=== PATIENT | male | born 1970 | race Two or more races ===

== ENCOUNTER 2016-12-28 05:21 | Inpatient (IN) | payer MEDICARE, MEDICAID ==
[~2016-12-28] VITALS: Ht 170.2 cm; Wt 74.8 kg
[2016-12-28] VITALS (9 sets, daily range): BP systolic 113–239; BP diastolic 60–101
[~2016-12-28 05:21] MED LIST: CLONIDINE0.1 MG ORAL; COREG6.25 MG ORAL; DIOVAN160 MG ORAL; HUMALOG100 UNIT/4 SUBQ; HYDRALAZINE HCL25 M1 ORAL; INSULIN; LANTUS SOL100 UNIT/1 SUBQ; METOPROLOL SUCC25 MG ORAL; NORVASC10 MG ORAL; PROTONIX40 MG ORAL
--- NOTE | 2016-12-28 05:51 | Emergency Room Report ---
History of Present Illness General Chief Complaint: Nausea, Vomiting, and Diarrhea Source: Patient (ALEX BLACK M.D.) Present Illness HPI A 46-year-old male with a history of hypertension and renal failure on hemodialysis Wednesday, Wednesday, and Wednesday. He scheduled for dialysis at 9 AM today. He presents with 2 day history of abdominal pain with nausea vomiting and diarrhea. Vomiting is nonbloody nonbilious. Reassurance is watery. Pain is 8/10. Sharp and crampy. Denies any fever or chills. Denies any chest pain. Denies any history of alcohol or drugs. (ALEX BLACK M.D.) Allergies: Coded Allergies: No Known Allergies (Unverified , 09/26/14) Patient History Past Medical History: see triage record, old chart reviewed, HTN, renal disease , dialysis Past Surgical History: other Pertinent Family History: none Social History: Denies: smoking Immunizations: other Reviewed Nursing Documentation: PMH: Agreed, PSxH: Agreed (ALEX BLACK M.D.) Nursing Documentation-PMH Hx Cardiac Problems: Yes - ESRD Hx Hypertension: Yes Hx Diabetes: Yes Hx Cancer: No Hx Gastrointestinal Problems: No Hx Dialysis: Yes - M,W,F Hx Neurological Problems: No Hx Dizziness: Yes Hx Headaches: Yes (ALEX BLACK M.D.) Review of Systems Eye: Denies: blurred vision, eye pain ENT: Denies: ear pain, nose congestion, throat swelling Respiratory: Denies: cough, shortness of breath Cardiovascular: Denies: chest pain, palpitations Gastrointestinal: Reports: abdominal pain, diarrhea, nausea, vomiting Musculoskeletal: Denies: back pain, joint pain Skin: Denies: rash Neurological: Denies: headache, numbness Endocrine: Denies: increased thirst, increased urine Hematologic/Lymphatic: Denies: easy bruising All Other Systems: negative except mentioned in HPI (ALEX BLACK M.D.) Physical Exam Vital Signs Date Time Temp Pulse Resp B/P Pulse Ox O2 Delivery O2 Flow Rate FiO2 12/28/16 05:27 98.1 71 16 231/102 90 Room Air vitals with hypertension hypoxia Sp02 EP Interpretation: reviewed, abnormal General Appearance: well appearing, no apparent distress, alert Head: normocephalic, atraumatic Eyes: bilateral eye EOMI, bilateral eye PERRL ENT: hearing grossly normal, normal pharynx Neck: full range of motion, supple, no meningismus Respiratory: chest non-tender, rales - at bases Cardiovascular #1: regular rate, rhythm, no murmur Gastrointestinal: no mass, no organomegaly, no bruit, non-distended, tenderness - Mild, diffuse. Hyperactive bowel sounds. Musculoskeletal: back normal, gait/station normal, normal range of motion Neurologic: alert, oriented x3 Psychiatric: mood/affect normal Skin: warm/dry (ALEX BLACK M.D.) Medical Decision Making Diagnostic Impression: Primary Impression: Nausea, vomiting, and diarrhea Additional Impressions: Hypertension Qualified Codes: I10 - Essential (primary) hypertension Fluid overload Qualified Codes: E87.70 - Fluid overload, unspecified ER Course She present with abdominal pain and severe hypertension. He is mildly fluid overloaded. He needs to be in dialysis. his symptoms may be secondary to uremia. Laboratory data and CT scan pending. I will sign this patient out to Dr. Glynn for labs and final disposition. (ALEX BLACK M.D.) ER Course Assumed care from Dr. Black. Please see his note. Patient return from CT. HTN. Hydralazine ordered. C/O pain - morphine repeated. CT with enteritis. Due to several factors (abd pain, pulm edema/hypoxia, HTN) will admit tele here. 8:00 - c/o dyspnea. Sats 100%. Resp rate 15. Nitroglycerine SL and topically ordered. Contact Dr. Acosta for admission. (Andreas Glynn M.D.) EKG Diagnostic Results EKG Time: 06:26 Rate: normal Rhythm: NSR ST Segments: no acute changes (ALEX BLACK M.D.) Rate: normal Rhythm: NSR ST Segments: no acute changes (Andreas Glynn M.D.) Rhythm Strip Diag. Results Rhythm Strip Time: 06:26 EP Interpretation: yes Rate: 73 Rhythm: NSR (ALEX BLACK M.D.) EP Interpretation: yes Rhythm: NSR, no PVC's, no ectopy (Andreas Glynn M.D.) Chest X-Ray Diagnostic Results Chest X-Ray Ordered: Yes # of Views/Limited/Complete: 1 View EP Interpretation: Yes Interpretation: no consolidation, no pneumothorax, other - CM with vasc congestion Indication: Shortness of Breath Impression: Other - CM with chf (ALEX BLACK M.D.) CT/MRI/US Diagnostic Results CT/MRI/US Diagnostic Results : Imaging Test Ordered: abd pelvis Impression Limited by no contrast. Increase in CM with pulmonary bibasilar interstitial infiltrates. Right pleural effusion and some CHF in stable pericardial effusion. Nonspecific dilatation of several small bowel loops. Possible enteritis. Apparently mild increasing upper abdominal retroperitoneal or pancreatic adenopathy nonspecific. Stable bilateral perinephric stranding coronary nephritis, nephropathy. Stable urinary bladder wall thickening hypertrophy versus cystitis. New 3 cm mass with fluid collection left inguinal canal nonspecific. Stable mild diffuse ST edema query anasarca. (Andreas Glynn M.D.) Last Vital Signs Date Time Temp Pulse Resp B/P Pulse Ox O2 Delivery O2 Flow Rate FiO2 12/28/16 05:27 98.1 71 16 231/102 90 Room Air Status: improved (ALEX BLACK M.D.) Disposition: ADMITTED INPATIENT Condition: Serious ALEX BLACK M.D. Dec 28, 2016 05:51 Andreas Glynn M.D. Dec 28, 2016 06:58
[2016-12-28] MEDS ORDERED: Morphine Sulfate 4mg/ml Inj IVP ONE ×2 (06:00→07:30)
[2016-12-28 06:30] LABS: BASOPHILS % (AUTO) 0.9 % (0.0-2.0); EOSINOPHILS % (AUTO) 0.2 % (0.0-3.0); LYMPHOCYTES % (AUTO) 9.6 % (20.0-45.0); MEAN CORPUSCULAR HEMOGLOBIN 34.3 PG (27.0-31.0); MEAN CORPUSCULAR HGB CONC 34.2 G/DL (32.0-36.0); MEAN CORPUSCULAR VOLUME 100 FL (80-99); MEAN PLATELET VOLUME 9.7 FL (6.5-10.1); NEUTROPHILS % (AUTO) 83.4 % (45.0-75.0); PLATELET COUNT 134 K/UL (150-450); RED CELL DISTRIBUTION WIDTH 12.5 % (11.6-14.8); WHITE BLOOD COUNT 8.1 K/UL (4.8-10.8)
[2016-12-28 06:44] LABS: TROPONIN I < 0.30 ng/mL (<=0.30)
[2016-12-28 06:45] LABS: ALBUMIN/GLOBULIN RATIO 1.3 (1.0-2.7); CREATININE 9.6 mg/dL (0.7-1.2); GLOMERULAR FILTRATION RATE 5.9 mL/min (>60); POTASSIUM 5.5 mEQ/L (3.4-4.9); TOTAL PROTEIN 7.4 g/dL (6.6-8.7)
[2016-12-28] MEDS ORDERED: MINOXIDIL2.5 MG PO (07:43)
[2016-12-28] MEDS ORDERED: CARVEDILOL25 MG ORAL (07:43)
[2016-12-28] MEDS ORDERED: GABAPENTIN300 MG ORAL (07:43)
[2016-12-28] MEDS ORDERED: ASPIR 8181 MG ORAL (07:43)
[2016-12-28] MEDS ORDERED: LASIX80 MG ORAL (07:43)
[2016-12-28] MEDS ORDERED: HYDRALAZINE HC100 MG ORAL (07:43)
[2016-12-28] MEDS ORDERED: PLAVIX75 MG ORAL (07:43)
[2016-12-28] MEDS ORDERED: Nitroglycerin Subl 0.4mg tab (Bottle Of 25) SL STA (07:58)
[2016-12-28] MEDS ORDERED: Nitroglycerin 2% oint pkt TOPIC ONE (08:00)
--- NOTE | 2016-12-28 11:05 | Diagnostic Imaging Report ---
Indication: SOB Technique: One view of the chest Comparison: 07/15/2015 Findings: Interim removal of previously demonstrated tunneled dialysis catheter. The heart remains enlarged. There is bilateral interstitial edema diffusely. The pleural spaces are grossly clear. Impression: Cardiomegaly Findings compatible with congestive heart failure
--- NOTE | 2016-12-28 11:37 | History & Physical ---
History and Physical History & Physicial Dictated for Int Med-Dr Acosta no. [id number]. EDWINA ONEILL Dec 28, 2016 11:37
[2016-12-28] MEDS ORDERED: LORazepam 1mg tab ORAL PRN (12:30)
[2016-12-28] MEDS ORDERED: cloNIDine 0.2mg Tab ORAL PRN (12:30)
--- NOTE | 2016-12-28 13:11 | Consultation ---
History of Present Illness General Date patient seen: Dec 28, 2016 Chief Complaint: Nausea, Vomiting, and Diarrhea Reason for Consultation: pulmonary edema Present Illness HPI 46-year-old male with a history of hypertension and ESRF on hemodialysis presented with 2 day history of abdominal pain with nausea vomiting and diarrhea. Vomiting is nonbloody nonbilious. Diarrhea is watery. Pain is 8/10. Sharp and crampy. Denies any fever or chills. Denies any chest pain. Denies any history of alcohol or drugs. His initial CXR showed that he has pulmonary edema, his labs revealed hyperkalemia. He is admitted to telemetry for further work up. Allergies: Coded Allergies: No Known Allergies (Unverified , 09/26/14) Medication History Scheduled Amlodipine Besylate (Norvasc), 10 MG ORAL DAILY Aspirin* (Aspir 81*), 81 MG ORAL DAILY, (Reported) Carvedilol (Coreg), 6.25 MG ORAL EVERY 12 HOURS Carvedilol* (Carvedilol*), 25 MG ORAL BID, (Reported) Clopidogrel Bisulfate* (Plavix*), 75 MG ORAL DAILY, (Reported) Furosemide* (Lasix*), 80 MG ORAL TWICE A DAY, (Reported) Gabapentin* (Gabapentin*), 300 MG ORAL EVERY 8 HOURS, (Reported) Hydralazine Hcl* (Hydralazine Hcl*), 100 MG ORAL THREE TIMES A DAY, (Reported) Insulin Glargine (Lantus), Unknown Dose SUBQ BEDTIME, (Reported) Minoxidil* (Loniten*), 2.5 MG PO BID, (Reported) Pantoprazole* (Protonix*), 40 MG ORAL DAILY Scheduled PRN Clonidine HCl (Clonidine HCl), 0.2 MG ORAL Q4H PRN for SBP> 160 Miscellaneous Medications Insulin Lispro (Humalog), 0 SUBQ, (Reported) Patient History Healthcare decision maker Resuscitation status Advanced Directive on File Past Medical/Surgical History Past Medical/Surgical History: (1) Congestive heart failure (CHF) (2) Hypertension (3) ESRD (end stage renal disease) on dialysis Review of Systems All Other Systems: negative except mentioned in HPI Physical Exam General Appearance: WD/WN, no apparent distress, mild distress Lines, tubes and drains: peripheral, dialysis access HEENT: normocephalic, atraumatic Neck: non-tender, normal alignment Respiratory/Chest: rhonchi - left, rhonchi - right Cardiovascular/Chest: normal peripheral pulses, normal rate Abdomen: normal bowel sounds, non tender Genitourinary/Rectal: normal genital exam, normal rectal exam Extremities: normal range of motion, non-tender Skin Exam: normal pigmentation, warm/dry Last 24 Hour Vital Signs Date Time Temp Pulse Resp B/P Pulse Ox O2 Delivery O2 Flow Rate FiO2 12/28/16 09:59 96.3 65 18 177/91 100 Simple Mask 10.0 12/28/16 09:40 182/81 12/28/16 09:30 Simple Mask 12/28/16 08:54 186/73 12/28/16 08:09 220/75 12/28/16 08:09 220/75 12/28/16 07:52 98.3 69 16 220/75 99 Simple Mask 10.0 12/28/16 07:51 98.3 12/28/16 07:31 238/101 12/28/16 07:14 98.3 71 16 238/101 100 Simple Mask 10.0 12/28/16 06:37 242/83 12/28/16 05:45 98.3 70 19 239/92 100 Room Air 12/28/16 05:27 98.1 71 16 231/102 90 Room Air Intake and Output 12/27/16 12/28/16 19:00 07:00 Intake Total 0 ml Balance 0 ml Intake Oral 0 ml Laboratory Tests Test 12/28/16 06:00 White Blood Count 8.1 K/UL (4.8-10.8) Red Blood Count 2.90 M/UL (4.70-6.10) L Hemoglobin 10.0 G/DL (14.2-18.0) L Hematocrit 29.1 % (42.0-52.0) L Mean Corpuscular Volume 100 FL (80-99) H Mean Corpuscular Hemoglobin 34.3 PG (27.0-31.0) H Mean Corpuscular Hemoglobin Concent 34.2 G/DL (32.0-36.0) Red Cell Distribution Width 12.5 % (11.6-14.8) Platelet Count 134 K/UL (150-450) L Mean Platelet Volume 9.7 FL (6.5-10.1) Neutrophils (%) (Auto) 83.4 % (45.0-75.0) H Lymphocytes (%) (Auto) 9.6 % (20.0-45.0) L Monocytes (%) (Auto) 6.0 % (1.0-10.0) Eosinophils (%) (Auto) 0.2 % (0.0-3.0) Basophils (%) (Auto) 0.9 % (0.0-2.0) Sodium Level 136 mEQ/L (135-145) Potassium Level 5.5 mEQ/L (3.4-4.9) H Chloride Level 86 mEQ/L (98-107) L Carbon Dioxide Level 27 mEQ/L (20-30) Anion Gap 23 (5-15) H Blood Urea Nitrogen 69 mg/dL (7-23) H Creatinine 9.6 mg/dL (0.7-1.2) H Estimat Glomerular Filtration Rate 5.9 mL/min (>60) Glucose Level 341 mg/dL (74-106) H Hemoglobin A1c Pending Calcium Level 10.0 mg/dL (8.6-10.2) Total Bilirubin 0.6 mg/dL (0.0-1.2) Aspartate Amino Transf (AST/SGOT) 15 U/L (5-40) Alanine Aminotransferase (ALT/SGPT) 11 U/L (3-41) Alkaline Phosphatase 107 U/L (40-129) Troponin I < 0.30 ng/mL (<=0.30) Total Protein 7.4 g/dL (6.6-8.7) Albumin 4.3 g/dL (3.5-5.2) Globulin 3.1 g/dL Albumin/Globulin Ratio 1.3 (1.0-2.7) Lipase 18 U/L (< 60) Height (Feet): 5 Height (Inches): 7.00 Weight (Pounds): 165 Medications Current Medications Medications (Trade) Dose Ordered Sig/Fish Route PRN Reason Start Time Stop Time Status Last Admin Dose Admin Acetaminophen (Tylenol) 650 mg Q4H PRN ORAL Mild Pain (Pain Scale 1-3) 12/28/16 12:30 01/27/17 12:29 UNV Amlodipine Besylate (Norvasc) 10 mg DAILY ORAL 12/28/16 12:30 01/27/17 12:29 UNV Aspirin (Ecotrin) 81 mg DAILY ORAL 12/28/16 12:30 01/27/17 12:29 UNV Carvedilol (Coreg) 25 mg BID ORAL 12/28/16 12:30 01/27/17 12:29 UNV Clonidine HCl (Catapres) 0.2 mg Q4H PRN ORAL SBP> 160 12/28/16 12:30 01/27/17 12:29 UNV Clopidogrel Bisulfate (Plavix) 75 mg DAILY ORAL 12/28/16 12:30 01/27/17 12:29 UNV Dextrose (Dextrose 50%) STAT PRN IV Hypoglycemia 12/28/16 12:30 01/27/17 12:29 UNV Dextrose (Dextrose 50%) STAT PRN IV Hypoglycemia 12/28/16 12:45 01/27/17 12:44 UNV Diphenhydramine HCl (Benadryl) 25 mg Q6H PRN ORAL Itching/Pruritis 12/28/16 12:30 01/27/17 12:29 UNV Furosemide (Lasix) 80 mg TWICE A DAY ORAL 12/28/16 12:30 01/27/17 12:29 UNV Gabapentin (Neurontin) 300 mg EVERY 8 HOURS ORAL 12/28/16 14:00 01/27/17 13:59 UNV Heparin Sodium (Porcine) (Heparin 5000 units/ml) 5,000 units EVERY 12 HOURS SUBQ 12/28/16 12:30 01/27/17 12:29 UNV Hydralazine HCl (Apresoline) 100 mg Q8HR ORAL 12/28/16 14:00 01/27/17 13:59 UNV Insulin Aspart (NovoLOG) BEFORE MEALS AND HS SUBQ 12/28/16 16:30 01/27/17 16:29 UNV Insulin Detemir (Levemir) 8 units BEDTIME SUBQ 12/28/16 21:00 01/27/17 20:59 UNV Lorazepam (Ativan) 1 mg Q4H PRN ORAL For Anxiety 12/28/16 12:30 01/04/17 12:29 UNV Minoxidil (Loniten) 2.5 mg BID ORAL 12/28/16 12:30 01/27/17 12:29 UNV Ondansetron HCl (Zofran) 4 mg EVERY 4 HOURS PRN IM Nausea & Vomiting 12/28/16 09:00 01/27/17 08:59 Ondansetron HCl (Zofran) 4 mg EVERY 4 HOURS PRN IVP Nausea & Vomiting 12/28/16 12:30 01/27/17 12:29 UNV Pantoprazole (Protonix) 40 mg DAILY ORAL 12/28/16 12:30 01/27/17 12:29 UNV Pantoprazole (Protonix) 40 mg DAILY ORAL 12/28/16 12:30 01/27/17 12:29 UNV Assessment/Plan Problem List: (1) Congestive heart failure (CHF) ICD Codes: I50.9 - Heart failure, unspecified SNOMED: 09248045 (2) Hyperkalemia ICD Codes: E87.5 - Hyperkalemia SNOMED: 06001177 (3) ESRD (end stage renal disease) on dialysis ICD Codes: N18.6 - End stage renal disease; Z99.2 - Dependence on renal dialysis SNOMED: 380179426 (4) Nausea & vomiting ICD Codes: R11.2 - Nausea with vomiting, unspecified SNOMED: 87165052 (5) Hypertension ICD Codes: I10 - Essential (primary) hypertension SNOMED: 93230692 Qualifiers: Qualified Codes: I10 - Essential (primary) hypertension Assessment/Plan Respiratory treatment titrate fio2 to sat of 92% HD symptomatic treatment GI evaluation, Dr. Thomas informed cx in am may go to med/surg after HD. IMELDA SANTIZO Dec 28, 2016 13:11
[2016-12-28] MEDS: Heparin 5000 units/ml inj SUBQ SCH ×2 (14:00→20:51)
[2016-12-28] MEDS ORDERED: Aspirin EC 81mg tab ORAL SCH (14:00)
[2016-12-28] MEDS: Minoxidil 2.5mg tab ORAL SCH ×2 (14:39→20:52)
[2016-12-28] MEDS: Furosemide 80mg tab ORAL SCH ×2 (14:39→17:09)
[2016-12-28] MEDS: HydrALAZINE 50mg tab ORAL SCH ×2 (14:40→21:38)
[2016-12-28] MEDS: Carvedilol 25mg Tab ORAL SCH ×2 (14:40→20:52)
--- NOTE | 2016-12-28 15:51 | GI Initial Consult Note ---
History of Present Illness General Date patient seen: Dec 28, 2016 Time patient seen: 15:50 Reason for Hospitalization: Nausea, Vomiting, and Diarrhea Referring physician: RADHA BOATENG Reason for Consultation: N/V/D Present Illness HPI A 46-year-old male with a history of hypertension and renal failure on hemodialysis Wednesday, Wednesday, and Wednesday. He scheduled for dialysis at 9 AM today. He presents with 2 day history of abdominal pain with nausea vomiting and diarrhea. Vomiting is nonbloody nonbilious. Reassurance is watery. Pain is 8/10. Sharp and crampy. Denies any fever or chills. Denies any chest pain. Denies any history of alcohol or drugs. GI Consult. HPI as noted above. GI consulted for N/V/D and c/o of abdominal pain x 2 days. Pt seen on floor, awake A&Ox4 NAD with no active s/sx of N/V/D. He stated last episode of emesis was this morning, denies any hematemesis or coffee grounds. Denies smoking and drinking. CT performed in ED shows enteritis. The patient presents today hx of DM with non compliancy and anemia. Lipase unremarkable. No history of endoscopic procedures. Home Meds Active Scripts Carvedilol (Coreg) 6.25 Mg Tab, 6.25 MG ORAL EVERY 12 HOURS, #1 TAB Prov:Fern Yang KNOCK OUT [employer] 07/17/15 Pantoprazole* (PROTONIX*) 40 Mg Tablet.dr, 40 MG ORAL DAILY, #1 TAB Prov:Fern Yang [employer] 07/17/15 Clonidine HCl (Clonidine HCl) 0.1 Mg Tab, 0.2 MG ORAL Q4H Y for SBP> 160, #1 TAB Prov:Fern Yang [employer] 07/17/15 Amlodipine Besylate (Norvasc) 10 Mg Tab, 10 MG ORAL DAILY, #1 TAB Prov:Fern Yang [employer]NOCK [employer] 07/17/15 Reported Medications Gabapentin* (GABAPENTIN*) 300 Mg Capsule, 300 MG ORAL EVERY 8 HOURS, CAP 0 Refills 12/28/16 Hydralazine Hcl* (HYDRALAZINE HCL*) 100 Mg Tablet, 100 MG ORAL THREE TIMES A DAY , TAB 12/28/16 Minoxidil* (LONITEN*) 2.5 Mg Tablet, 2.5 MG PO BID, TAB 12/28/16 Aspirin* (ASPIR 81*) 81 Mg Tablet.dr, 81 MG ORAL DAILY, TAB 12/28/16 Clopidogrel Bisulfate* (PLAVIX*) 75 Mg Tablet, 75 MG ORAL DAILY, TAB 12/28/16 Carvedilol* (CARVEDILOL*) 25 Mg Tablet, 25 MG ORAL BID, TAB 12/28/16 Furosemide* (LASIX*) 80 Mg Tablet, 80 MG ORAL TWICE A DAY, TAB 12/28/16 Insulin Lispro (HUMALOG) 100 Unit/1 Ml Cartridge, 0 SUBQ, #1 UNITS 0 Refills 07/16/15 Insulin Glargine (LANTUS) 100 Unit/1 Ml Insuln.pen, SUBQ BEDTIME, #1 EA 0 Refills 07/16/15 Med list reviewed/reconciled: Yes Allergies: Coded Allergies: No Known Allergies (Unverified , 09/26/14) Patient History PMH Narrative Past Medical History: see triage record, old chart reviewed, HTN, renal disease , dialysis Past Surgical History: other Pertinent Family History: none Social History: Denies: smoking Immunizations: other Nursing Documentation-PMH Hx Cardiac Problems: Yes - ESRD Hx Hypertension: Yes Hx Diabetes: Yes Hx Cancer: No Hx Gastrointestinal Problems: No Hx Dialysis: Yes - M,W,F Hx Neurological Problems: No Hx Dizziness: Yes Hx Headaches: Yes Review of Systems All Other Systems: negative except mentioned in HPI Physical Exam Vital Signs Date Time Temp Pulse Resp B/P Pulse Ox O2 Delivery O2 Flow Rate FiO2 12/28/16 05:27 98.1 71 16 231/102 90 Room Air 12/28/16 07:14 10.0 Sp02 EP Interpretation: reviewed Labs Laboratory Tests Test 12/28/16 06:00 White Blood Count 8.1 K/UL (4.8-10.8) Red Blood Count 2.90 M/UL (4.70-6.10) L Hemoglobin 10.0 G/DL (14.2-18.0) L Hematocrit 29.1 % (42.0-52.0) L Mean Corpuscular Volume 100 FL (80-99) H Mean Corpuscular Hemoglobin 34.3 PG (27.0-31.0) H Mean Corpuscular Hemoglobin Concent 34.2 G/DL (32.0-36.0) Red Cell Distribution Width 12.5 % (11.6-14.8) Platelet Count 134 K/UL (150-450) L Mean Platelet Volume 9.7 FL (6.5-10.1) Neutrophils (%) (Auto) 83.4 % (45.0-75.0) H Lymphocytes (%) (Auto) 9.6 % (20.0-45.0) L Monocytes (%) (Auto) 6.0 % (1.0-10.0) Eosinophils (%) (Auto) 0.2 % (0.0-3.0) Basophils (%) (Auto) 0.9 % (0.0-2.0) Sodium Level 136 mEQ/L (135-145) Potassium Level 5.5 mEQ/L (3.4-4.9) H Chloride Level 86 mEQ/L (98-107) L Carbon Dioxide Level 27 mEQ/L (20-30) Anion Gap 23 (5-15) H Blood Urea Nitrogen 69 mg/dL (7-23) H Creatinine 9.6 mg/dL (0.7-1.2) H Estimat Glomerular Filtration Rate 5.9 mL/min (>60) Glucose Level 341 mg/dL (74-106) H Hemoglobin A1c 6.9 % (< 6.0) H Calcium Level 10.0 mg/dL (8.6-10.2) Total Bilirubin 0.6 mg/dL (0.0-1.2) Aspartate Amino Transf (AST/SGOT) 15 U/L (5-40) Alanine Aminotransferase (ALT/SGPT) 11 U/L (3-41) Alkaline Phosphatase 107 U/L (40-129) Troponin I < 0.30 ng/mL (<=0.30) Total Protein 7.4 g/dL (6.6-8.7) Albumin 4.3 g/dL (3.5-5.2) Globulin 3.1 g/dL Albumin/Globulin Ratio 1.3 (1.0-2.7) Lipase 18 U/L (< 60) General Appearance: well appearing, no apparent distress, alert Head: normocephalic EENT: normal ENT inspection Neck: full range of motion, supple Respiratory: normal breath sounds, no respiratory distress Cardiovascular: normal rate Gastrointestinal: normal inspection, non tender, soft Neurologic: normal inspection, alert, oriented x3, responsive Psychiatric: normal inspection, judgement/insight normal, memory normal Skin: normal color, no rash, warm/dry Current Medications Current Medications Medications (Trade) Dose Ordered Sig/Fish Route PRN Reason Start Time Stop Time Status Last Admin Dose Admin Acetaminophen (Tylenol) 650 mg Q4H PRN ORAL Mild Pain (Pain Scale 1-3) 12/28/16 12:30 01/27/17 12:29 Amlodipine Besylate (Norvasc) 10 mg DAILY ORAL 12/28/16 14:00 01/27/17 13:59 12/28/16 14:40 Aspirin (Ecotrin) 81 mg DAILY ORAL 12/28/16 14:00 01/27/17 13:59 12/28/16 14:38 Carvedilol (Coreg) 25 mg Q12HR ORAL 12/28/16 14:00 01/27/17 13:59 12/28/16 14:40 Clonidine HCl (Catapres) 0.2 mg Q4H PRN ORAL SBP> 160 12/28/16 12:30 01/27/17 12:29 Clopidogrel Bisulfate (Plavix) 75 mg DAILY ORAL 12/28/16 14:00 01/27/17 13:59 12/28/16 14:40 Dextrose (Dextrose 50%) STAT PRN IV Hypoglycemia 12/28/16 12:45 01/27/17 12:44 Diphenhydramine HCl (Benadryl) 25 mg Q6H PRN ORAL Itching/Pruritis 12/28/16 12:30 01/27/17 12:29 Furosemide (Lasix) 80 mg TWICE A DAY ORAL 12/28/16 14:00 01/27/17 13:59 12/28/16 14:39 Gabapentin (Neurontin) 300 mg EVERY 8 HOURS ORAL 12/28/16 14:00 01/27/17 13:59 12/28/16 14:41 Heparin Sodium (Porcine) (Heparin 5000 units/ml) 5,000 units EVERY 12 HOURS SUBQ 12/28/16 14:00 01/27/17 13:59 Hydralazine HCl (Apresoline) 100 mg Q8HR ORAL 12/28/16 14:00 01/27/17 13:59 12/28/16 14:40 Insulin Aspart (NovoLOG) BEFORE MEALS AND HS SUBQ 12/28/16 16:30 01/27/17 16:29 Insulin Detemir (Levemir) 8 units BEDTIME SUBQ 12/28/16 21:00 01/27/17 20:59 Lorazepam (Ativan) 1 mg Q4H PRN ORAL For Anxiety 12/28/16 12:30 01/04/17 12:29 Minoxidil (Loniten) 2.5 mg Q12HR ORAL 12/28/16 14:00 01/27/17 13:59 12/28/16 14:39 Ondansetron HCl (Zofran) 4 mg EVERY 4 HOURS PRN IVP Nausea & Vomiting 12/28/16 12:30 01/27/17 12:29 Pantoprazole (Protonix) 40 mg DAILY ORAL 12/28/16 12:30 01/27/17 12:29 12/28/16 14:50 GI: Plan Problems: (1) Nausea & vomiting (2) Congestive heart failure (CHF) (3) Nausea, vomiting, and diarrhea (4) Anemia (5) DM gastroparesis Plan CT enteritis lipase WNL symptomatic treatment anemia work up OB stool to r/o GI bleed zofran prn, consider low dose erythromycin if patient has persistent vomiting FLD, adv as tolerated ppi cont lasix DM mgmt pt is on Plavix (this medication must be stopped min 48 hours prior any endoscopic procedure.) fu labs Discussed with Dr. Nunez. Thank you for referring this patient, we will follow. Citlali Singh N.P. Dec 28, 2016 15:51
--- NOTE | 2016-12-28 16:10 | Diagnostic Imaging Report ---
Indication: Abnormal Technique: Spiral acquisitions obtained through the abdomen and pelvis. No oral contrast utilized, per emergency room physician request No IV contrast utilized, per referring physician request.. Multiplanar reconstructions were generated. Total dose length product 682 mGycm. CTDIvol(s) 13 mGy. Dose reduction achieved using automated exposure control Comparison: 07/16/2015 contrast study Findings: The heart is enlarged. There is a small right-sided pleural effusion and trace left pleural effusion. There is patchy groundglass opacity at the right lung base. The bones demonstrate mild degenerative proliferative changes of the lumbar spine. There is considerable atherosclerotic vascular calcification. There is generalized mild edema of the subcutaneous abdominal fat. These findings are new or progressive since the previous study. There is an inferior pericardial effusion which was evident previously. The appendix is normal. No evidence of diverticulosis or diverticulitis. No small bowel distention. No free or loculated intraperitoneal air or fluid. There is a umbilical hernia into which protrudes the edge of the transverse colon. Distal esophagus, stomach, duodenum are unremarkable. There an ovoid soft tissue attenuation structure within the right inguinal canal which measures 5 cm long axis dimension and 2.8 cm short axis dimension. This was not evident previously Lack of IV contrast limits assessment of the solid organs. The liver, gallbladder, bile ducts, pancreas, spleen, adrenals are unremarkable. No renal parenchymal abnormality, renal or ureteral calculus, hydronephrosis, or hydroureter. There is perinephric fat stranding bilaterally. Prominent retroperitoneal and peripancreatic nodes are slightly more prominent than previously. No pelvic mass or adenopathy. The bladder is apparently somewhat thickwalled, also evident previously. Impression: Progressive cardiomegaly. Progressive generalized soft tissue edema, as described Patchy groundglass opacities at the right lung base, small right trace left pleural effusion, likely reflecting congestive heart failure Pericardial effusion, evident previously New ovoid soft tissue attenuation structure within the right inguinal canal, measuring 5 cm long. Further evaluation with ultrasound recommended to better characterize. Prominent and somewhat increased peripancreatic and retroperitoneal lymph nodes, nonspecific Bilateral perinephric fat stranding, also evident previously, nonspecific. Thickwalled bladder, could indicate cystitis or chronic bladder outlet obstruction This agrees with the preliminary interpretation provided overnight by Dr. Muir The CT scanner at [facility] is accredited by the [employer] and the scans are performed using protocols designed to limit radiation exposure to as low as reasonably achievable to attain images of sufficient resolution adequate for diagnostic evaluation.
[2016-12-28] MEDS: NovoLOG Insulin Flexpen SUBQ SCH ×2 (17:10→20:51)
--- NOTE | 2016-12-28 18:21 | Cardiac Electrophysiology PN ---
Subjective Subjective [id number] Objective Last 24 Hour Vital Signs Date Time Temp Pulse Resp B/P Pulse Ox O2 Delivery O2 Flow Rate FiO2 12/28/16 16:29 196/82 12/28/16 16:11 99.0 64 18 196/82 97 Nasal Cannula 2.0 12/28/16 14:40 186/81 12/28/16 14:40 69 186/81 12/28/16 14:40 69 186/81 12/28/16 14:39 186/81 12/28/16 14:36 69 18 186/81 100 Simple Mask 10.0 12/28/16 12:15 97.5 63 18 197/87 100 Simple Mask 10.0 12/28/16 12:00 64 12/28/16 09:59 96.3 65 18 177/91 100 Simple Mask 10.0 12/28/16 09:40 182/81 12/28/16 09:30 Simple Mask 12/28/16 08:54 186/73 12/28/16 08:09 220/75 12/28/16 08:09 220/75 12/28/16 07:52 98.3 69 16 220/75 99 Simple Mask 10.0 12/28/16 07:51 98.3 12/28/16 07:31 238/101 12/28/16 07:14 98.3 71 16 238/101 100 Simple Mask 10.0 12/28/16 06:37 242/83 12/28/16 05:45 98.3 70 19 239/92 100 Room Air 12/28/16 05:27 98.1 71 16 231/102 90 Room Air Intake and Output 12/27/16 12/28/16 19:00 07:00 Intake Total 0 ml Balance 0 ml Intake Oral 0 ml Laboratory Tests Test 12/28/16 06:00 White Blood Count 8.1 K/UL (4.8-10.8) Red Blood Count 2.90 M/UL (4.70-6.10) L Hemoglobin 10.0 G/DL (14.2-18.0) L Hematocrit 29.1 % (42.0-52.0) L Mean Corpuscular Volume 100 FL (80-99) H Mean Corpuscular Hemoglobin 34.3 PG (27.0-31.0) H Mean Corpuscular Hemoglobin Concent 34.2 G/DL (32.0-36.0) Red Cell Distribution Width 12.5 % (11.6-14.8) Platelet Count 134 K/UL (150-450) L Mean Platelet Volume 9.7 FL (6.5-10.1) Neutrophils (%) (Auto) 83.4 % (45.0-75.0) H Lymphocytes (%) (Auto) 9.6 % (20.0-45.0) L Monocytes (%) (Auto) 6.0 % (1.0-10.0) Eosinophils (%) (Auto) 0.2 % (0.0-3.0) Basophils (%) (Auto) 0.9 % (0.0-2.0) Sodium Level 136 mEQ/L (135-145) Potassium Level 5.5 mEQ/L (3.4-4.9) H Chloride Level 86 mEQ/L (98-107) L Carbon Dioxide Level 27 mEQ/L (20-30) Anion Gap 23 (5-15) H Blood Urea Nitrogen 69 mg/dL (7-23) H Creatinine 9.6 mg/dL (0.7-1.2) H Estimat Glomerular Filtration Rate 5.9 mL/min (>60) Glucose Level 341 mg/dL (74-106) H Hemoglobin A1c 6.9 % (< 6.0) H Calcium Level 10.0 mg/dL (8.6-10.2) Total Bilirubin 0.6 mg/dL (0.0-1.2) Aspartate Amino Transf (AST/SGOT) 15 U/L (5-40) Alanine Aminotransferase (ALT/SGPT) 11 U/L (3-41) Alkaline Phosphatase 107 U/L (40-129) Troponin I < 0.30 ng/mL (<=0.30) Total Protein 7.4 g/dL (6.6-8.7) Albumin 4.3 g/dL (3.5-5.2) Globulin 3.1 g/dL Albumin/Globulin Ratio 1.3 (1.0-2.7) Lipase 18 U/L (< 60) ANAYA HOOD Dec 28, 2016 18:21
--- NOTE | 2016-12-28 20:01 | History and Physical Report ---
DATE OF ADMISSION: 12/28/2016 CHIEF COMPLAINT: The patient is a 46-year-old male who presents with chief complaint of nausea, vomiting, and diarrhea. HISTORY OF PRESENT ILLNESS: Began on 12/26/2016. The patient began to experience epigastric pain. The patient also complained of nausea and vomiting. The patient also had diarrhea. The patient states he is unable to tolerate liquids or solids. The patient states as soon as he eats or drink something, he vomits and has diarrhea. The patient presented to [facility] emergency room. The patient was admitted for nausea, vomiting, diarrhea, and epigastric pain. PAST MEDICAL HISTORY: Significant for 1. End-stage renal disease, on hemodialysis, every Wednesday, Wednesday, and Wednesday. 2. Diabetes type 2. 3. Hypertension. 4. The patient states his last dialysis was on 12/25/2016. PAST SURGICAL HISTORY: Significant for right arteriovenous graft for dialysis. CURRENT MEDICATIONS: 1. Lantus 80 units subcutaneously at bedtime. 2. Amlodipine 10 mg one tablet p.o. daily. 3. Aspirin 81 mg one tablet p.o. daily. 4. Coreg 6.25 mg one tablet p.o. twice daily. 5. Plavix 75 mg one tablet p.o. daily. 6. Lasix 80 mg one tablet p.o. twice daily. 7. Gabapentin 300 mg one tablet p.o. three times daily. 8. Hydralazine 100 mg one tablet p.o. three times daily. 9. Lispro sliding scale. 10. Minoxidil 2.5 mg one tablet p.o. twice daily. 11. Protonix 40 mg one tablet p.o. daily. ALLERGIES: No known drug allergies. SOCIAL HISTORY: The patient is . The patient is disabled. The patient denies tobacco or alcohol use. REVIEW OF SYSTEMS: Constitutional: The patient denies weight loss or weight gain. The patient denies fevers or chills. HEENT: The patient denies ear or throat pain. The patient denies headache. Cardiovascular: The patient denies palpitations or chest pain. Chest: The patient denies chest pain or palpitations. Abdomen: The patient complains of epigastric pain as above. The patient complains of nausea and vomiting as above. The patient complains of diarrhea as above. The patient denies constipation. Neuromuscular: The patient denies seizures or generalized weakness. Genitourinary: The patient denies dysuria or increased frequency of urination. PHYSICAL EXAMINATION: GENERAL: The patient is well developed and well nourished male, who is currently undergoing dialysis. VITAL SIGNS: Temperature 98.3 degrees, respirations 16, pulse 69, and blood pressure 220/75. HEENT: Eyes, pupils are equal and responsive to light and accommodation. Extraocular movements are intact. NECK: Supple without lymphadenopathy. CHEST: Lungs are clear to auscultation bilaterally without wheezes or rales. CARDIOVASCULAR: Regular rhythm and rate. S1 and S2 are normal without murmurs, rubs, or gallops. ABDOMEN: Soft. Tender to palpation in the epigastric region otherwise without rebound or guarding. EXTREMITIES: There is no clubbing, cyanosis, or edema. RECTAL: Refused. NEUROLOGIC: Cranial nerves II through XII are grossly intact without focal deficits. Motor strength is 5/5 bilaterally. Deep tendon reflexes are 2+ plantar. LABORATORY AND DIAGNOSTIC DATA: WBC 8.1, hemoglobin 10.2, hematocrit 29.1, and platelets 134,000. Sodium 136, potassium 5.5, chloride 86, CO2 27, BUN 69, creatinine 9.6, and glucose 341. Troponin less than 0.3. Chest x-ray was reported as bilateral interstitial edema consistent with congestive heart failure. ASSESSMENT: This is a 46-year-old male. 1. Congestive heart failure. 2. Diarrhea. 3. Nausea and vomiting. 4. Epigastric pain. 5. Diabetes type 2. 6. Hypertension. 7. End-stage renal disease. TREATMENT: 1. Congestive heart failure. Cardiology consultation will be obtained with Dr. Lloyd. We will follow recommendations of Dr. Lloyd. Hydralazine and Coreg will be continued as above. Amlodipine will be continued as above. 2. Diarrhea/nausea/vomiting. A Gastroenterology consultation will be obtained with Dr. Se Sinclair. We will follow recommendations Dr. Sinclair. 3. Gastric pain, this may be secondary to nausea and vomiting as above or cholelithiasis. A CT scan of the abdomen is pending. 4. Diabetes type 2. Continue Lantus as above and NovoLog sliding scale has been . 5. Hypertension. Continue hydralazine, Coreg and Norvasc as above. A Cardiology consultation will be obtained with Dr. Lloyd. 6. End-stage renal disease. A Nephrology consultation will be obtained with Dr. Machado. We will follow recommendations of Nephrology. The patient is currently undergoing hemodialysis. Ernie Lawson M.D. DR: MENDEZ JOB#: [id number] CC:
--- NOTE | 2016-12-28 20:02 | Cardiology Report ---
APPROVED REPORT EKG Measurement Heart [id number] Normal sinus rhythm Normal ECG
[2016-12-28] MEDS ORDERED: Levemir Flexpen SUBQ SCH (21:00)
--- NOTE | 2016-12-28 21:45 | Consultation ---
DATE OF CONSULTATION: 12/28/2016 REFERRING PHYSICIAN: Jimbo Acosta M.D. REASON FOR CONSULTATION: End-stage renal disease, need for dialysis. HISTORY OF PRESENT ILLNESS: The patient is a 46-year-old, male with past medical history significant for history of end-stage renal disease, anemia of chronic kidney disease, renal osteodystrophy, diabetes, uncontrolled hypertension apparently started having cough and yellow sputum for two days. The patient also at the emergency room complaining of abdominal pain, nausea, vomiting. In ER, the patient found to be having a chest x-ray with pulmonary edema. The patient also found to be severely hyperkalemic, the last dialysis on Wednesday. The patient consequently was admitted in the hospital for congestive heart failure exacerbation and hyperkalemia. I was called for management of renal disease and electrolyte imbalance. PAST MEDICAL HISTORY: Includin. Including end-stage renal disease. 2. Anemia of chronic kidney disease. 3. Renal osteodystrophy. 4. Hypertension. 5. Diabetes. 6. History of diabetic neuropathy. 7. Dyslipidemia. PAST SURGICAL HISTORY: History of AV fistula placement. ALLERGIES: NO KNOWN DRUG ALLERGIES. HOME MEDICATIONS: Including 1. Amlodipine 10 mg p.o. daily. 2. Aspirin 81 mg p.o. daily. 3. Carvedilol 25 mg p.o. daily. 4. Lasix 80 mg p.o. daily 5. Hydralazine 100 mg p.o. daily. 6. Insulin glargine 1000 p.o. daily. 7. 2.5 mg p.o. daily. 8. Protonix 40 mg p.o. daily. REVIEW OF SYSTEMS: General: He complained of generalized weakness. Denies any fever, chills, or night sweats. Head and neck: Denies any dysphagia, odynophagia, blurry vision, headache, or neck stiffness. Pulmonary: Complained of shortness of breath, cough, yellow sputum. Complained of orthopnea. Gastrointestinal: Complained of nausea and vomiting. Denies any melena, hematemesis, hematochezia. Genitourinary: Denies any dysuria, frequency, or hematuria. Musculoskeletal: He complained of generalized weakness otherwise negative. PHYSICAL EXAMINATION: VITAL SIGNS: The patient had temperature of 96, blood pressure of 170/91, pulse rate of 61, respiratory rate of 18. HEAD AND NECK: No JVP. No LAD. No thyromegaly. Extraocular movement intact. Pupils reactive to light and accommodation. LUNGS: Bilateral decreased breathing sound on the both side otherwise clear. CARDIAC: Regular rate and rhythm. S1 and S2. No murmur. No rub. ABDOMEN: Soft, nontender, and nondistended. EXTREMITIES: Trace edema. No clubbing. No cyanosis. LABORATORY VALUES: The patient had WBC count of 8.1, hemoglobin of 10, and hematocrit of 29, and platelet count of 134. Chemistry reveals sodium 136, potassium 5.5, chloride 86, bicarb 27, BUN of 69, creatinine of 9.6. Glucose of 343. Hemoglobin A1c of 6.9. AST of 15, ALT of 11. Total protein of 7.4. Albumin of 4.3. Chest x-ray revealed pulmonary congestion. ASSESSMENT: 1. Fluid overload. 2. End-stage renal disease. 3. Anemia of chronic kidney disease. 4. Hyperkalemia. 5. Uncontrolled diabetes. PLAN: 1. Stat dialysis to be done. 2. Start the patient on Epogen for anemia of chronic kidney disease. 3. Check iron panel. 4. Check the calcium, phosphorous, PTH for evaluation of renal osteodystrophy. 5. Monitor the electrolytes closely. At the end, I would like to thank, Dr. Acosta, for allowing me to participate in the care of this patient. Jerilyn Machado M.D. DR: Alissa JOB#: [id number] CC:
[2016-12-29] VITALS (7 sets, daily range): BP systolic 87–135; BP diastolic 40–61
[2016-12-29] MEDS ORDERED: LORazepam 1mg tab ORAL PRN (00:30)
[2016-12-29] MEDS ORDERED: cloNIDine 0.2mg Tab ORAL PRN (00:30)
--- NOTE | 2016-12-29 03:16 | Consultation ---
DATE OF CONSULTATION: 12/28/2016 CARDIOLOGY CONSULTATION: CONSULTING PHYSICIAN: Cricket Gottlieb M.D. REFERRING PHYSICIAN: Jimbo Acosta M.D. REASON FOR CONSULTATION: Accelerated hypertension and congestive heart failure. HISTORY OF PRESENT ILLNESS: The patient is a 46-year-old gentleman with a history of hypertension and end-stage renal disease, on hemodialysis, Wednesday, Wednesday, and Wednesday, who presented with two days of abdominal pain, nausea, vomiting, and diarrhea. The patient did not have any chest pain or shortness of breath. In the emergency room, however, the blood pressure was more than 200. The patient was admitted to telemetry and underwent hemodialysis. Per my evaluation, the patient is . PAST MEDICAL HISTORY: 1. Hypertension. 2. Diabetes. 3. End-stage renal disease, on hemodialysis. MEDICATIONS: Per reconciliation. FAMILY HISTORY: Noncontributory. REVIEW OF SYSTEMS: Review of systems was negative other than what is mentioned in the history of present illness. PHYSICAL EXAMINATION: VITAL SIGNS: Blood pressure is 196/82, pulse 64, and respirations 18. NECK: Shows no JVD. LUNGS: Decreased breath sounds. CARDIOVASCULAR: Shows regular S1 and S2 with no gallop. ABDOMEN: Soft. EXTREMITIES: No pitting edema. LABORATORY DATA: Showed white count of 8, hemoglobin 10, hematocrit 29, and platelet count of 134,000. Sodium is 133, potassium 5.5, BUN 69, creatinine 9.6, and glucose 341. ASSESSMENT/PLAN: 1. Accelerated hypertension. Blood pressure was 230 in the emergency room. Continue Norvasc 10 mg daily, Coreg 25 mg b.i.d., hemodialysis. mg p.o. b.i.d., minoxidil 2.5 mg b.i.d., and hydralazine 100 mg two times daily. The patient is also on p.r.n. clonidine. We will add intravenous hydralazine to his medical regimen. 2. Congestive heart failure, on hemodialysis. We will get an echocardiogram for further evaluation. 3. Diabetes. 4. Abdominal pain, nausea, and vomiting. Further evaluation by gastrointestinal, Dr. Nunez. Thank you very much, Dr. Acosta, for allowing me to participate in the care of this patient. Please do not hesitate to contact me for any questions regarding my evaluation. Cricket Gottlieb M.D. DR: Obi JOB#: [id number] CC:
[2016-12-29] MEDS: HydrALAZINE 50mg tab ORAL SCH ×3 (05:35→22:00)
[2016-12-29] MEDS: NovoLOG Insulin Flexpen SUBQ SCH ×5 (06:23→20:45)
[2016-12-29 06:48] LABS: BASOPHILS % (AUTO) 1.4 % (0.0-2.0); LYMPHOCYTES % (AUTO) 24.6 % (20.0-45.0); MEAN CORPUSCULAR HGB CONC 33.1 G/DL (32.0-36.0); MEAN CORPUSCULAR VOLUME 100 FL (80-99); MEAN PLATELET VOLUME 8.5 FL (6.5-10.1); MONOCYTES % (AUTO) 11.8 % (1.0-10.0); NEUTROPHILS % (AUTO) 60.2 % (45.0-75.0); PLATELET COUNT 147 K/UL (150-450); RED BLOOD COUNT 2.84 M/UL (4.70-6.10); RED CELL DISTRIBUTION WIDTH 12.8 % (11.6-14.8); WHITE BLOOD COUNT 5.8 K/UL (4.8-10.8)
[2016-12-29 08:06] LABS: TROPONIN I < 0.30 ng/mL (<=0.30)
[2016-12-29 08:08] LABS: THYROID STIMULATING HORMONE 1.13 uIU/mL (0.300-4.500)
--- NOTE | 2016-12-29 08:12 | Nephrology Progress Note ---
Assessment/Plan Assessment 1. Fluid overload. 2. End-stage renal disease. 3. Anemia of chronic kidney disease. 4. Hyperkalemia. 5. Uncontrolled diabetes. Plan plan dialysis in am hold all bp meds monitoring electrolyte restart epogen check phos Subjective Constitutional: Reports: no symptoms HEENT: Reports: no symptoms Genitourinary: Reports: no symptoms Neurologic/Psychiatric: Reports: no symptoms Subjective had dialysis yesterday feeling ok continue to be hypotensive Objective Objective Last 24 Hour Vital Signs Date Time Temp Pulse Resp B/P Pulse Ox O2 Delivery O2 Flow Rate FiO2 12/29/16 05:35 101/52 12/29/16 05:33 97.2 55 16 101/52 97 Nasal Cannula 2.0 12/29/16 04:00 96.8 54 16 87/40 97 Nasal Cannula 2.0 12/29/16 00:00 98.1 59 18 90/43 96 Nasal Cannula 2.0 12/28/16 21:38 97/54 12/28/16 20:52 113/60 12/28/16 20:52 60 113/60 12/28/16 20:00 99.0 60 18 113/60 97 Nasal Cannula 2.0 12/28/16 18:28 61 122/62 Nasal Cannula 2.0 12/28/16 16:29 196/82 12/28/16 16:11 99.0 64 18 196/82 97 Nasal Cannula 2.0 12/28/16 14:40 186/81 12/28/16 14:40 69 186/81 12/28/16 14:40 69 186/81 12/28/16 14:39 186/81 12/28/16 14:36 69 18 186/81 100 Simple Mask 10.0 12/28/16 12:15 97.5 63 18 197/87 100 Simple Mask 10.0 12/28/16 12:00 64 12/28/16 09:59 96.3 65 18 177/91 100 Simple Mask 10.0 12/28/16 09:40 182/81 12/28/16 09:30 Simple Mask 12/28/16 08:54 186/73 12/28/16 08:09 220/75 12/28/16 08:09 220/75 Intake and Output 12/28/16 12/29/16 19:00 07:00 Intake Total 240 ml 100 ml Output Total 4400 ml Balance -4160 ml 100 ml Intake Oral 240 ml 100 ml Output Hemodialysis UF 4400 ml # Bowel Movements 1 Laboratory Tests 12/29/16 04:40: White Blood Count 5.8, Red Blood Count 2.84L, Hemoglobin 9.4L, Hematocrit 28.3L , Mean Corpuscular Volume 100H, Mean Corpuscular Hemoglobin 33.0H, Mean Corpuscular Hemoglobin Concent 33.1, Red Cell Distribution Width 12.8, Platelet Count 147L, Mean Platelet Volume 8.5, Neutrophils (%) (Auto) 60.2, Lymphocytes ( %) (Auto) 24.6, Monocytes (%) (Auto) 11.8H, Eosinophils (%) (Auto) 2.0, Basophils (%) (Auto) 1.4, Sodium Level [Pending], Potassium Level [Pending], Chloride Level [Pending], Carbon Dioxide Level [Pending], Blood Urea Nitrogen [ Pending], Creatinine [Pending], Estimat Glomerular Filtration Rate [Pending], Glucose Level [Pending], Calcium Level [Pending], Magnesium Level [Pending], Iron Level 52L, Total Iron Binding Capacity 171L, Percent Iron Saturation 30, Unsaturated Iron Binding 119, Total Bilirubin [Pending], Aspartate Amino Transf (AST/SGOT) [Pending], Alanine Aminotransferase (ALT/SGPT) [Pending], Alkaline Phosphatase [Pending], Troponin I [Pending], Pro-B-Type Natriuretic Peptide [ Pending], Total Protein [Pending], Albumin [Pending], Globulin [Pending], Carcinoembryonic Antigen [Pending], Thyroid Stimulating Hormone (TSH) [Pending] , Free Thyroxine [Pending] Height (Feet): 5 Height (Inches): 7.00 Weight (Pounds): 165 Objective HEAD AND NECK: No JVP. No LAD. No thyromegaly. Extraocular movement intact. Pupils reactive to light and accommodation. LUNGS: Bilateral decreased breathing sound on the both side otherwise clear. CARDIAC: Regular rate and rhythm. S1 and S2. No murmur. No rub. ABDOMEN: Soft, nontender, and nondistended. EXTREMITIES: Trace edema. No clubbing. No cyanosis. [facility] Dec 29, 2016 08:12
[2016-12-29 08:29] LABS: ALBUMIN/GLOBULIN RATIO 1.3 (1.0-2.7); CALCIUM 9.1 mg/dL (8.6-10.2); CREATININE 7.6 mg/dL (0.7-1.2); GLOMERULAR FILTRATION RATE 7.7 mL/min (>60); MAGNESIUM 2.1 mg/dL (1.7-2.5); POTASSIUM 4.4 mEQ/L (3.4-4.9); TOTAL PROTEIN 5.9 g/dL (6.6-8.7)
[2016-12-29] MEDS: Minoxidil 2.5mg tab ORAL SCH ×2 (08:59→20:51)
[2016-12-29] MEDS: Carvedilol 25mg Tab ORAL SCH ×3 (09:00→20:58)
[2016-12-29] MEDS: Heparin 5000 units/ml inj SUBQ SCH ×2 (09:00→20:52)
[2016-12-29] MEDS: Aspirin EC 81mg tab ORAL SCH (09:01)
[2016-12-29] MEDS: Furosemide 80mg tab ORAL SCH ×2 (09:01→17:16)
--- NOTE | 2016-12-29 11:46 | Consultation ---
DATE OF CONSULTATION: 12/28/2016 GASTROENTEROLOGY CONSULTATION REPORT: CHIEF COMPLAINT: I was asked to see this patient by Dr. Ernie Lawson for evaluation of nausea and vomiting. HISTORY OF PRESENT ILLNESS: The patient is a pleasant 46-year-old man who is being seen for nausea and vomiting. He complains of a two-day history of nausea, vomiting, and diarrhea. He has some fevers, but no chills. He has no contacts with similar illness with his family. He states he had an endoscopy and colonoscopy about a year ago at [facility] and he was not told there was any significant results. He was seen here at [facility] about a year and half ago with similar symptomatology with nausea, vomiting, diarrhea, but the patient recovered uneventfully. The patient also complains of some hiccups and some gastroesophageal reflux at this time. The patient has regular bowel movements without any hematochezia or melena. He has no alcohol or drug use. PAST MEDICAL HISTORY: Congestive heart failure, hypertension, and end-stage renal disease, on dialysis. MEDICATIONS: See chart list for details. SOCIAL HISTORY: The patient is . He does not smoke or drink alcohol. FAMILY HISTORY: Noncontributory. REVIEW OF SYSTEMS: Otherwise negative. PHYSICAL EXAMINATION: GENERAL: The patient is a pleasant man, seen in his room. HEENT: Normocephalic and atraumatic. Sclerae anicteric. Oropharynx is clear. Dentition is poor. NECK: Supple. CHEST: Clear to auscultation. CARDIOVASCULAR: Revealed regular rate. ABDOMEN: Soft with good bowel sounds. There is no organomegaly or tenderness. EXTREMITIES: Revealed no edema. LABORATORY DATA: Noted. ASSESSMENT: This patient presents with nausea, vomiting, diarrhea, very acute setting. The differential diagnoses most typically include a viral gastroenteritis, which should resolve spontaneously with supportive care. This is a similar presentation about a year and a half ago. He does have anemia and had previously suggest the patient to return to me for an outpatient endoscopy and colonoscopy. He says this has been done at different hospital and therefore that recommendation has been followed. I have advised the patient to follow up with me as an outpatient to monitor his blood count and review the results with any other facility he could get them for me. For the time being, however, I would encourage oral hydration and exam. Should his symptoms persist or return, for further evaluation with imaging studies and stool cultures can be considered. RECOMMENDATIONS: Per above discussion and per orders written in the chart. Thank you for asking me to participate in care of this patient . Se Sinclair M.D. DR: Rabia JOB#: [id number] CC:
--- NOTE | 2016-12-29 14:50 | Cardiology Report ---
APPROVED REPORT EXAM: Two-dimensional and M-mode echocardiogram with Doppler and color Doppler. INDICATION Congestive Heart Failure M-Mode DIMENSIONS IVSd1.7 (0.7-1.1cm)Left Atrium (MM)4.2 (1.6-4.0cm) LVDd4.6 (3.5-5.6cm)Aortic Root3.2 (2.0-3.7cm) PWd2.4 (0.7-1.1cm)Aortic Cusp Exc.1.8 (1.5-2.0cm) LVDs2.2 (2.5-4.0cm) PWs3.3 cm Normal left ventricular chamber size, systolic function and wall motion. Left ventricular ejection fraction estimated to be 60-65 %. Severe left ventricular hypertrophy. Small posterior hemodynamically insignificant pericardial effusion. Mild bi-atrial enlargement. Right ventricular chamber size is within normal limits. Mild focal aortic valve sclerosis with adequate cusp excursion. Mildly thickened mitral valve leaflets with normal excursion. Mitral annulus and aortic root calcification. Normal pulmonic valve structure. Normal tricuspid valve structure. IVC at normal size with physiologic collapse. A color flow and spectral Doppler study was performed and revealed: Trace aortic regurgitation. Mild mitral regurgitation. Mitral inflow indicates normal left ventricular diastolic function. Mild tricuspid regurgitation. Tricuspid systolic velocities suggests peak right ventricular systolic pressure of 37 mmHg, consistent with mild pulmonary hypertension.
--- NOTE | 2016-12-29 15:36 | Pulmonology Progress Note ---
Assessment/Plan Problems: (1) Congestive heart failure (CHF) (2) Hyperkalemia (3) ESRD (end stage renal disease) on dialysis (4) Nausea & vomiting (5) Hypertension Assessment/Plan HD by nephrology monitor BP anemia w/u, on Epogen check electroltyes pt/ot dc planning Subjective ROS Limited/Unobtainable: No Constitutional: Reports: no symptoms HEENT: Repors: no symptoms Respiratory: Reports: no symptoms Allergies: Coded Allergies: No Known Allergies (Unverified , 09/26/14) Objective Last 24 Hour Vital Signs Date Time Temp Pulse Resp B/P Pulse Ox O2 Delivery O2 Flow Rate FiO2 12/29/16 14:00 102/46 12/29/16 12:00 97.5 55 18 102/46 95 Nasal Cannula 3.0 12/29/16 08:00 97.0 54 18 103/50 98 Nasal Cannula 3.0 12/29/16 05:35 101/52 12/29/16 05:33 97.2 55 16 101/52 97 Nasal Cannula 2.0 12/29/16 04:00 96.8 54 16 87/40 97 Nasal Cannula 2.0 12/29/16 00:00 98.1 59 18 90/43 96 Nasal Cannula 2.0 12/28/16 21:38 97/54 12/28/16 20:52 113/60 12/28/16 20:52 60 113/60 12/28/16 20:00 99.0 60 18 113/60 97 Nasal Cannula 2.0 12/28/16 18:28 61 122/62 Nasal Cannula 2.0 12/28/16 16:29 196/82 12/28/16 16:11 99.0 64 18 196/82 97 Nasal Cannula 2.0 Intake and Output 12/28/16 12/29/16 19:00 07:00 Intake Total 240 ml 100 ml Output Total 4400 ml Balance -4160 ml 100 ml Intake Oral 240 ml 100 ml Output Hemodialysis UF 4400 ml # Bowel Movements 1 General Appearance: cachetic HEENT: normocephalic, atraumatic Respiratory/Chest: chest wall non-tender, lungs clear Cardiovascular: normal peripheral pulses, normal rate Abdomen: normal bowel sounds, soft, non tender Genitourinary: normal external genitalia Extremities: no cyanosis Skin: no rash Laboratory Tests 12/29/16 04:40: White Blood Count 5.8, Red Blood Count 2.84L, Hemoglobin 9.4L, Hematocrit 28.3L , Mean Corpuscular Volume 100H, Mean Corpuscular Hemoglobin 33.0H, Mean Corpuscular Hemoglobin Concent 33.1, Red Cell Distribution Width 12.8, Platelet Count 147L, Mean Platelet Volume 8.5, Neutrophils (%) (Auto) 60.2, Lymphocytes ( %) (Auto) 24.6, Monocytes (%) (Auto) 11.8H, Eosinophils (%) (Auto) 2.0, Basophils (%) (Auto) 1.4, Sodium Level 139, Potassium Level 4.4, Chloride Level 89L, Carbon Dioxide Level 32H, Anion Gap 18H, Blood Urea Nitrogen 50H, Creatinine 7.6H, Estimat Glomerular Filtration Rate 7.7, Glucose Level 61#L, Calcium Level 9.1, Phosphorus Level 6.8H, Magnesium Level 2.1, Iron Level 52L, Total Iron Binding Capacity 171L, Percent Iron Saturation 30, Unsaturated Iron Binding 119, Total Bilirubin 0.6, Aspartate Amino Transf (AST/SGOT) 16, Alanine Aminotransferase (ALT/SGPT) 11, Alkaline Phosphatase 80, Troponin I < 0.30, Pro- B-Type Natriuretic Peptide > 67419D, Total Protein 5.9L, Albumin 3.4L, Globulin 2.5, Albumin/Globulin Ratio 1.3, Carcinoembryonic Antigen 2.6, Thyroid Stimulating Hormone (TSH) 1.130, Free Thyroxine 1.47 Current Medications Medications (Trade) Dose Ordered Sig/Fish Route PRN Reason Start Time Stop Time Status Last Admin Dose Admin Acetaminophen (Tylenol) 650 mg Q4H PRN ORAL Mild Pain (Pain Scale 1-3) 12/29/16 00:30 01/28/17 00:29 Amlodipine Besylate (Norvasc) 10 mg DAILY ORAL 12/29/16 09:00 01/28/17 08:59 Aspirin (Ecotrin) 81 mg DAILY ORAL 12/29/16 09:00 01/28/17 08:59 12/29/16 09:01 Carvedilol (Coreg) 25 mg Q12HR ORAL 12/29/16 09:00 01/28/17 08:59 Clonidine HCl (Catapres) 0.2 mg Q4H PRN ORAL SBP> 160 12/29/16 00:30 01/28/17 00:29 Clopidogrel Bisulfate (Plavix) 75 mg DAILY ORAL 12/29/16 09:00 01/28/17 08:59 12/29/16 09:01 Dextrose (Dextrose 50%) STAT PRN IV Hypoglycemia 12/29/16 12:45 01/28/17 12:44 Diphenhydramine HCl (Benadryl) 25 mg Q6H PRN ORAL Itching/Pruritis 12/29/16 00:30 01/28/17 00:29 Epoetin Armand (Procrit (for ESRD on dialysis)) 10,000 units WED-WED-WED SUBQ 12/30/16 21:00 01/29/17 20:59 Furosemide (Lasix) 80 mg TWICE A DAY ORAL 12/29/16 09:00 01/28/17 08:59 12/29/16 09:01 Gabapentin (Neurontin) 300 mg EVERY 8 HOURS ORAL 12/29/16 06:00 01/28/17 05:59 12/29/16 14:26 Heparin Sodium (Porcine) (Heparin 5000 units/ml) 5,000 units EVERY 12 HOURS SUBQ 12/29/16 09:00 01/28/17 08:59 Hydralazine HCl (Apresoline) 100 mg Q8HR ORAL 12/29/16 06:00 01/28/17 05:59 Insulin Aspart (NovoLOG) BEFORE MEALS AND HS SUBQ 12/29/16 06:30 01/28/17 06:29 12/29/16 11:47 Insulin Detemir (Levemir) 8 units BEDTIME SUBQ 12/29/16 21:00 01/28/17 20:59 Lorazepam (Ativan) 1 mg Q4H PRN ORAL For Anxiety 12/29/16 00:30 01/05/17 00:29 Minoxidil (Loniten) 2.5 mg Q12HR ORAL 12/29/16 09:00 01/28/17 08:59 Ondansetron HCl (Zofran) 4 mg EVERY 4 HOURS PRN IVP Nausea & Vomiting 12/29/16 01:00 01/28/17 00:59 Pantoprazole (Protonix) 40 mg DAILY ORAL 12/29/16 09:00 01/28/17 08:59 12/29/16 09:01 IMELDA SANTIZO Dec 29, 2016 15:36
--- NOTE | 2016-12-29 16:25 | GI Progress Note ---
Assessment/Plan Problems: (1) DM gastroparesis ICD Codes: E11.43 - Type 2 diabetes mellitus with diabetic autonomic (poly) neuropathy; K31.84 - Gastroparesis SNOMED: 00177414, 186641138 (2) Anemia ICD Codes: D64.9 - Anemia SNOMED: 424930567 (3) Nausea & vomiting ICD Codes: R11.2 - Nausea with vomiting, unspecified SNOMED: 83352702 (4) ESRD (end stage renal disease) on dialysis ICD Codes: N18.6 - End stage renal disease; Z99.2 - Dependence on renal dialysis SNOMED: 218401158 (5) Nausea, vomiting, and diarrhea ICD Codes: R11.2 - Nausea with vomiting, unspecified; R19.7 - Diarrhea, unspecified SNOMED: 5449361 Status: stable Status Narrative Discussed with Dr. Nunez. Assessment/Plan CT enteritis lipase WNL chronic anemia 2/2 ESRD symptomatic treatment zofran prn, consider low dose erythromycin if patient has persistent vomiting ADA Renal Diet, tolerating ppi cont lasix DM mgmt pt is on Plavix (this medication must be stopped min 48 hours prior any endoscopic procedure.) OB stool to r/o GI bleed uncollected >> recommend patient for outpatient EGD/ colonoscopy to further evaluate anemia. fu labs Subjective Subjective abdominal pain improved Objective Last 24 Hour Vital Signs Date Time Temp Pulse Resp B/P Pulse Ox O2 Delivery O2 Flow Rate FiO2 12/29/16 15:58 97.3 54 19 100/48 99 Nasal Cannula 3.0 12/29/16 14:00 102/46 12/29/16 12:00 97.5 55 18 102/46 95 Nasal Cannula 3.0 12/29/16 08:00 97.0 54 18 103/50 98 Nasal Cannula 3.0 12/29/16 05:35 101/52 12/29/16 05:33 97.2 55 16 101/52 97 Nasal Cannula 2.0 12/29/16 04:00 96.8 54 16 87/40 97 Nasal Cannula 2.0 12/29/16 00:00 98.1 59 18 90/43 96 Nasal Cannula 2.0 12/28/16 21:38 97/54 12/28/16 20:52 113/60 12/28/16 20:52 60 113/60 12/28/16 20:00 99.0 60 18 113/60 97 Nasal Cannula 2.0 12/28/16 18:28 61 122/62 Nasal Cannula 2.0 12/28/16 16:29 196/82 Intake and Output 12/28/16 12/29/16 19:00 07:00 Intake Total 240 ml 100 ml Output Total 4400 ml Balance -4160 ml 100 ml Intake Oral 240 ml 100 ml Output Hemodialysis UF 4400 ml # Bowel Movements 1 Laboratory Tests Test 12/29/16 04:40 White Blood Count 5.8 K/UL (4.8-10.8) Red Blood Count 2.84 M/UL (4.70-6.10) L Hemoglobin 9.4 G/DL (14.2-18.0) L Hematocrit 28.3 % (42.0-52.0) L Mean Corpuscular Volume 100 FL (80-99) H Mean Corpuscular Hemoglobin 33.0 PG (27.0-31.0) H Mean Corpuscular Hemoglobin Concent 33.1 G/DL (32.0-36.0) Red Cell Distribution Width 12.8 % (11.6-14.8) Platelet Count 147 K/UL (150-450) L Mean Platelet Volume 8.5 FL (6.5-10.1) Neutrophils (%) (Auto) 60.2 % (45.0-75.0) Lymphocytes (%) (Auto) 24.6 % (20.0-45.0) Monocytes (%) (Auto) 11.8 % (1.0-10.0) H Eosinophils (%) (Auto) 2.0 % (0.0-3.0) Basophils (%) (Auto) 1.4 % (0.0-2.0) Sodium Level 139 mEQ/L (135-145) Potassium Level 4.4 mEQ/L (3.4-4.9) Chloride Level 89 mEQ/L (98-107) L Carbon Dioxide Level 32 mEQ/L (20-30) H Anion Gap 18 (5-15) H Blood Urea Nitrogen 50 mg/dL (7-23) H Creatinine 7.6 mg/dL (0.7-1.2) H Estimat Glomerular Filtration Rate 7.7 mL/min (>60) Glucose Level 61 mg/dL (74-106) #L Calcium Level 9.1 mg/dL (8.6-10.2) Phosphorus Level 6.8 mg/dL (2.5-4.8) H Magnesium Level 2.1 mg/dL (1.7-2.5) Iron Level 52 ug/dL (59-158) L Total Iron Binding Capacity 171 ug/dL (250-400) L Percent Iron Saturation 30 % (15-50) Unsaturated Iron Binding 119 ug/dL (112-346) Total Bilirubin 0.6 mg/dL (0.0-1.2) Aspartate Amino Transf (AST/SGOT) 16 U/L (5-40) Alanine Aminotransferase (ALT/SGPT) 11 U/L (3-41) Alkaline Phosphatase 80 U/L (40-129) Troponin I < 0.30 ng/mL (<=0.30) Pro-B-Type Natriuretic Peptide > 88534 pg/mL (0-125) H Total Protein 5.9 g/dL (6.6-8.7) L Albumin 3.4 g/dL (3.5-5.2) L Globulin 2.5 g/dL Albumin/Globulin Ratio 1.3 (1.0-2.7) Carcinoembryonic Antigen 2.6 ng/mL Thyroid Stimulating Hormone (TSH) 1.130 uIU/mL (0.300-4.500) Free Thyroxine 1.47 ng/dL (0.86-1.85) Height (Feet): 5 Height (Inches): 7.00 Weight (Pounds): 165 General Appearance: no apparent distress, alert Cardiovascular: normal rate Respiratory/Chest: normal breath sounds, no respiratory distress, other - 2LNC Abdominal Exam: normal bowel sounds, non tender, soft Extremities: normal range of motion Citlali Singh N.P. Dec 29, 2016 16:25
--- NOTE | 2016-12-29 16:40 | Internal Med Progress Note ---
Subjective Date of Service: Dec 29, 2016 Physician Name Edwina Oneill Attending Physician Jimbo Acosta MD Current Medications Medications (Trade) Dose Ordered Sig/Fish Route PRN Reason Start Time Stop Time Status Last Admin Dose Admin Acetaminophen (Tylenol) 650 mg Q4H PRN ORAL Mild Pain (Pain Scale 1-3) 12/29/16 00:30 01/28/17 00:29 Amlodipine Besylate (Norvasc) 10 mg DAILY ORAL 12/29/16 09:00 01/28/17 08:59 Aspirin (Ecotrin) 81 mg DAILY ORAL 12/29/16 09:00 01/28/17 08:59 12/29/16 09:01 Carvedilol (Coreg) 25 mg Q12HR ORAL 12/29/16 09:00 01/28/17 08:59 Clonidine HCl (Catapres) 0.2 mg Q4H PRN ORAL SBP> 160 12/29/16 00:30 01/28/17 00:29 Clopidogrel Bisulfate (Plavix) 75 mg DAILY ORAL 12/29/16 09:00 01/28/17 08:59 12/29/16 09:01 Dextrose (Dextrose 50%) STAT PRN IV Hypoglycemia 12/29/16 12:45 01/28/17 12:44 Diphenhydramine HCl (Benadryl) 25 mg Q6H PRN ORAL Itching/Pruritis 12/29/16 00:30 01/28/17 00:29 Epoetin Armand (Procrit (for ESRD on dialysis)) 10,000 units WED-WED-WED SUBQ 12/30/16 21:00 01/29/17 20:59 Furosemide (Lasix) 80 mg TWICE A DAY ORAL 12/29/16 09:00 01/28/17 08:59 12/29/16 09:01 Gabapentin (Neurontin) 300 mg EVERY 8 HOURS ORAL 12/29/16 06:00 01/28/17 05:59 12/29/16 14:26 Heparin Sodium (Porcine) (Heparin 5000 units/ml) 5,000 units EVERY 12 HOURS SUBQ 12/29/16 09:00 01/28/17 08:59 Hydralazine HCl (Apresoline) 100 mg Q8HR ORAL 12/29/16 06:00 01/28/17 05:59 Insulin Aspart (NovoLOG) BEFORE MEALS AND HS SUBQ 12/29/16 06:30 01/28/17 06:29 12/29/16 11:47 Insulin Detemir (Levemir) 8 units BEDTIME SUBQ 12/29/16 21:00 01/28/17 20:59 Lorazepam (Ativan) 1 mg Q4H PRN ORAL For Anxiety 12/29/16 00:30 01/05/17 00:29 Minoxidil (Loniten) 2.5 mg Q12HR ORAL 12/29/16 09:00 01/28/17 08:59 Ondansetron HCl (Zofran) 4 mg EVERY 4 HOURS PRN IVP Nausea & Vomiting 12/29/16 01:00 01/28/17 00:59 Pantoprazole (Protonix) 40 mg DAILY ORAL 12/29/16 09:00 01/28/17 08:59 12/29/16 09:01 Allergies: Coded Allergies: No Known Allergies (Unverified , 09/26/14) ROS Limited/Unobtainable: No Constitutional: Reports: no symptoms HEENT: Reports: no symptoms Cardiovascular: Reports: no symptoms Respiratory: Reports: no symptoms Gastrointestinal/Abdominal: Reports: no symptoms Genitourinary: Reports: no symptoms Neurologic/Psychiatric: Reports: no symptoms Subjective 46 YO M admitted with nausea, vomiting, diarrhea and epigastric pain. Now enteritis. Cover for [facility] Med-Dr Acosta. Objective Last Vital Signs Date Time Temp Pulse Resp B/P Pulse Ox O2 Delivery O2 Flow Rate FiO2 12/29/16 15:58 97.3 54 19 100/48 99 Nasal Cannula 3.0 General Appearance: WD/WN, no apparent distress, alert EENT: PERRL/EOMI, normal ENT inspection Neck: non-tender, normal alignment, supple Cardiovascular: normal peripheral pulses, normal rate, regular rhythm, no gallop/murmur, no JVD Respiratory/Chest: chest wall non-tender, lungs clear, normal breath sounds, no respiratory distress, no accessory muscle use Abdomen: normal bowel sounds, non tender, soft, no organomegaly, no mass Extremities: normal range of motion Neurologic: medical sales consultant II-XII grossly normal, no motor/sensory deficits Skin: normal pigmentation Laboratory Tests Test 12/29/16 04:40 White Blood Count 5.8 K/UL (4.8-10.8) Red Blood Count 2.84 M/UL (4.70-6.10) L Hemoglobin 9.4 G/DL (14.2-18.0) L Hematocrit 28.3 % (42.0-52.0) L Mean Corpuscular Volume 100 FL (80-99) H Mean Corpuscular Hemoglobin 33.0 PG (27.0-31.0) H Mean Corpuscular Hemoglobin Concent 33.1 G/DL (32.0-36.0) Red Cell Distribution Width 12.8 % (11.6-14.8) Platelet Count 147 K/UL (150-450) L Mean Platelet Volume 8.5 FL (6.5-10.1) Neutrophils (%) (Auto) 60.2 % (45.0-75.0) Lymphocytes (%) (Auto) 24.6 % (20.0-45.0) Monocytes (%) (Auto) 11.8 % (1.0-10.0) H Eosinophils (%) (Auto) 2.0 % (0.0-3.0) Basophils (%) (Auto) 1.4 % (0.0-2.0) Sodium Level 139 mEQ/L (135-145) Potassium Level 4.4 mEQ/L (3.4-4.9) Chloride Level 89 mEQ/L (98-107) L Carbon Dioxide Level 32 mEQ/L (20-30) H Anion Gap 18 (5-15) H Blood Urea Nitrogen 50 mg/dL (7-23) H Creatinine 7.6 mg/dL (0.7-1.2) H Estimat Glomerular Filtration Rate 7.7 mL/min (>60) Glucose Level 61 mg/dL (74-106) #L Calcium Level 9.1 mg/dL (8.6-10.2) Phosphorus Level 6.8 mg/dL (2.5-4.8) H Magnesium Level 2.1 mg/dL (1.7-2.5) Iron Level 52 ug/dL (59-158) L Total Iron Binding Capacity 171 ug/dL (250-400) L Percent Iron Saturation 30 % (15-50) Unsaturated Iron Binding 119 ug/dL (112-346) Total Bilirubin 0.6 mg/dL (0.0-1.2) Aspartate Amino Transf (AST/SGOT) 16 U/L (5-40) Alanine Aminotransferase (ALT/SGPT) 11 U/L (3-41) Alkaline Phosphatase 80 U/L (40-129) Troponin I < 0.30 ng/mL (<=0.30) Pro-B-Type Natriuretic Peptide > 70116 pg/mL (0-125) H Total Protein 5.9 g/dL (6.6-8.7) L Albumin 3.4 g/dL (3.5-5.2) L Globulin 2.5 g/dL Albumin/Globulin Ratio 1.3 (1.0-2.7) Carcinoembryonic Antigen 2.6 ng/mL Thyroid Stimulating Hormone (TSH) 1.130 uIU/mL (0.300-4.500) Free Thyroxine 1.47 ng/dL (0.86-1.85) Intake and Output 12/28/16 12/29/16 18:59 06:59 Intake Total 240 ml 100 ml Output Total 4400 ml Balance -4160 ml 100 ml Intake Oral 240 ml 100 ml Output Hemodialysis UF 4400 ml # Bowel Movements 1 Assessment/Plan Problem List: (1) Epigastric pain (2) Diabetes mellitus type II, controlled (3) HTN (hypertension) (4) ESRD (end stage renal disease) on dialysis Assessment & Plan: Last hemodialysis 12/28/16-See nephrology note. (5) Congestive heart failure (CHF) (6) Nausea, vomiting, and diarrhea Assessment & Plan: Resolving; see GI note. (7) Enteritis Assessment & Plan: Will require colonoscopy and endoscopy-see GI note. (8) CHF (congestive heart failure) Assessment & Plan: See cardiology note. EDWINA ONEILL Dec 29, 2016 16:40
--- NOTE | 2016-12-29 18:32 | Cardiac Electrophysiology PN ---
Assessment/Plan Assessment/Plan 1. Accelerated hypertension. Continue Norvasc 10 mg daily, Coreg 25 mg b.i.d., minoxidil 2.5 mg b.i.d., and hydralazine 100 mg three times daily and HD. The patient is also on p.r.n. clonidine. 2. Congestive heart failure due to diastolic dysfunction on hemodialysis. EF 55%. 3. Diabetes. 4. Abdominal pain, nausea, and vomiting. Stool OB pending per Dr. Nunez. 5. ESRD on HD DW RN Subjective Subjective Alert now off tele.Comfortable in NAD. No chest pain or SOB. Awaiting HD tomorrow.Had Echo EF 65%. Objective Last 24 Hour Vital Signs Date Time Temp Pulse Resp B/P Pulse Ox O2 Delivery O2 Flow Rate FiO2 12/29/16 15:58 97.3 54 19 100/48 99 Nasal Cannula 3.0 12/29/16 14:00 102/46 12/29/16 12:00 97.5 55 18 102/46 95 Nasal Cannula 3.0 12/29/16 08:00 97.0 54 18 103/50 98 Nasal Cannula 3.0 12/29/16 05:35 101/52 12/29/16 05:33 97.2 55 16 101/52 97 Nasal Cannula 2.0 12/29/16 04:00 96.8 54 16 87/40 97 Nasal Cannula 2.0 12/29/16 00:00 98.1 59 18 90/43 96 Nasal Cannula 2.0 12/28/16 21:38 97/54 12/28/16 20:52 113/60 12/28/16 20:52 60 113/60 12/28/16 20:00 99.0 60 18 113/60 97 Nasal Cannula 2.0 12/28/16 18:28 61 122/62 Nasal Cannula 2.0 Intake and Output 12/28/16 12/29/16 19:00 07:00 Intake Total 240 ml 100 ml Output Total 4400 ml Balance -4160 ml 100 ml Intake Oral 240 ml 100 ml Output Hemodialysis UF 4400 ml # Bowel Movements 1 Laboratory Tests Test 12/29/16 04:40 White Blood Count 5.8 K/UL (4.8-10.8) Red Blood Count 2.84 M/UL (4.70-6.10) L Hemoglobin 9.4 G/DL (14.2-18.0) L Hematocrit 28.3 % (42.0-52.0) L Mean Corpuscular Volume 100 FL (80-99) H Mean Corpuscular Hemoglobin 33.0 PG (27.0-31.0) H Mean Corpuscular Hemoglobin Concent 33.1 G/DL (32.0-36.0) Red Cell Distribution Width 12.8 % (11.6-14.8) Platelet Count 147 K/UL (150-450) L Mean Platelet Volume 8.5 FL (6.5-10.1) Neutrophils (%) (Auto) 60.2 % (45.0-75.0) Lymphocytes (%) (Auto) 24.6 % (20.0-45.0) Monocytes (%) (Auto) 11.8 % (1.0-10.0) H Eosinophils (%) (Auto) 2.0 % (0.0-3.0) Basophils (%) (Auto) 1.4 % (0.0-2.0) Sodium Level 139 mEQ/L (135-145) Potassium Level 4.4 mEQ/L (3.4-4.9) Chloride Level 89 mEQ/L (98-107) L Carbon Dioxide Level 32 mEQ/L (20-30) H Anion Gap 18 (5-15) H Blood Urea Nitrogen 50 mg/dL (7-23) H Creatinine 7.6 mg/dL (0.7-1.2) H Estimat Glomerular Filtration Rate 7.7 mL/min (>60) Glucose Level 61 mg/dL (74-106) #L Calcium Level 9.1 mg/dL (8.6-10.2) Phosphorus Level 6.8 mg/dL (2.5-4.8) H Magnesium Level 2.1 mg/dL (1.7-2.5) Iron Level 52 ug/dL (59-158) L Total Iron Binding Capacity 171 ug/dL (250-400) L Percent Iron Saturation 30 % (15-50) Unsaturated Iron Binding 119 ug/dL (112-346) Total Bilirubin 0.6 mg/dL (0.0-1.2) Aspartate Amino Transf (AST/SGOT) 16 U/L (5-40) Alanine Aminotransferase (ALT/SGPT) 11 U/L (3-41) Alkaline Phosphatase 80 U/L (40-129) Troponin I < 0.30 ng/mL (<=0.30) Pro-B-Type Natriuretic Peptide > 82768 pg/mL (0-125) H Total Protein 5.9 g/dL (6.6-8.7) L Albumin 3.4 g/dL (3.5-5.2) L Globulin 2.5 g/dL Albumin/Globulin Ratio 1.3 (1.0-2.7) Carcinoembryonic Antigen 2.6 ng/mL Thyroid Stimulating Hormone (TSH) 1.130 uIU/mL (0.300-4.500) Free Thyroxine 1.47 ng/dL (0.86-1.85) Objective NECK: Shows no JVD. LUNGS: Decreased breath sounds. CARDIOVASCULAR: Shows regular S1 and S2 with no gallop. ABDOMEN: Soft. EXTREMITIES: No pitting edema. ANAYA HOOD Dec 29, 2016 18:32
[2016-12-29] MEDS: Levemir Flexpen SUBQ SCH (20:53)
--- NOTE | 2016-12-29 21:57 | General Progress Note ---
Assessment/Plan Assessment/Plan Assessment - N/V, transient and possibly resolving - ? gastroenteritis - ESRD -- PD Recommendations - push po - OOB - follow symptoms Subjective Allergies: Coded Allergies: No Known Allergies (Unverified , 09/26/14) Subjective Feels better no vomiting or abdominal pain tolerating liquid diet wants to advance diet Objective Last 24 Hour Vital Signs Date Time Temp Pulse Resp B/P Pulse Ox O2 Delivery O2 Flow Rate FiO2 12/29/16 20:58 61 135/61 12/29/16 20:51 135/61 12/29/16 15:58 97.3 54 19 100/48 99 Nasal Cannula 3.0 12/29/16 14:00 102/46 12/29/16 12:00 97.5 55 18 102/46 95 Nasal Cannula 3.0 12/29/16 08:00 97.0 54 18 103/50 98 Nasal Cannula 3.0 12/29/16 05:35 101/52 12/29/16 05:33 97.2 55 16 101/52 97 Nasal Cannula 2.0 12/29/16 04:00 96.8 54 16 87/40 97 Nasal Cannula 2.0 12/29/16 00:00 98.1 59 18 90/43 96 Nasal Cannula 2.0 Intake and Output 12/28/16 12/29/16 19:00 07:00 Intake Total 240 ml 100 ml Output Total 4400 ml Balance -4160 ml 100 ml Intake Oral 240 ml 100 ml Output Hemodialysis UF 4400 ml # Bowel Movements 1 Laboratory Tests 12/29/16 04:40: White Blood Count 5.8, Red Blood Count 2.84L, Hemoglobin 9.4L, Hematocrit 28.3L , Mean Corpuscular Volume 100H, Mean Corpuscular Hemoglobin 33.0H, Mean Corpuscular Hemoglobin Concent 33.1, Red Cell Distribution Width 12.8, Platelet Count 147L, Mean Platelet Volume 8.5, Neutrophils (%) (Auto) 60.2, Lymphocytes ( %) (Auto) 24.6, Monocytes (%) (Auto) 11.8H, Eosinophils (%) (Auto) 2.0, Basophils (%) (Auto) 1.4, Sodium Level 139, Potassium Level 4.4, Chloride Level 89L, Carbon Dioxide Level 32H, Anion Gap 18H, Blood Urea Nitrogen 50H, Creatinine 7.6H, Estimat Glomerular Filtration Rate 7.7, Glucose Level 61#L, Calcium Level 9.1, Phosphorus Level 6.8H, Magnesium Level 2.1, Iron Level 52L, Total Iron Binding Capacity 171L, Percent Iron Saturation 30, Unsaturated Iron Binding 119, Total Bilirubin 0.6, Aspartate Amino Transf (AST/SGOT) 16, Alanine Aminotransferase (ALT/SGPT) 11, Alkaline Phosphatase 80, Troponin I < 0.30, Pro- B-Type Natriuretic Peptide > 95635E, Total Protein 5.9L, Albumin 3.4L, Globulin 2.5, Albumin/Globulin Ratio 1.3, Carcinoembryonic Antigen 2.6, Thyroid Stimulating Hormone (TSH) 1.130, Free Thyroxine 1.47 Height (Feet): 5 Height (Inches): 7.00 Weight (Pounds): 165 Objective Thin man NCAT supple CTA RRR Soft NT minimal TTP no edema non focal CELSO LINCOLN Dec 29, 2016 21:57
[2016-12-30] VITALS: BP 110/50
[2016-12-30 04:43] VITALS: BP 114/56
[2016-12-30] MEDS: HydrALAZINE 50mg tab ORAL SCH ×3 (06:00→22:43)
[2016-12-30] MEDS: NovoLOG Insulin Flexpen SUBQ SCH ×4 (06:20→21:06)
[2016-12-30 07:40] LABS: BASOPHILS % (AUTO) 1.2 % (0.0-2.0); EOSINOPHILS % (AUTO) 2.3 % (0.0-3.0); LYMPHOCYTES % (AUTO) 20.6 % (20.0-45.0); MEAN CORPUSCULAR HEMOGLOBIN 33.4 PG (27.0-31.0); MEAN CORPUSCULAR HGB CONC 33.6 G/DL (32.0-36.0); MEAN CORPUSCULAR VOLUME 99 FL (80-99); MEAN PLATELET VOLUME 9.7 FL (6.5-10.1); MONOCYTES % (AUTO) 12.5 % (1.0-10.0); NEUTROPHILS % (AUTO) 63.4 % (45.0-75.0); PLATELET COUNT 157 K/UL (150-450); RED BLOOD COUNT 2.88 M/UL (4.70-6.10); RED CELL DISTRIBUTION WIDTH 12.2 % (11.6-14.8); WHITE BLOOD COUNT 6.6 K/UL (4.8-10.8)
[2016-12-30 08:01] VITALS: BP 121/58
[2016-12-30 08:04] LABS: INR 1.1 (0.9-1.1); PROTHROMBIN TIME 11.6 SEC (9.30-11.50)
[2016-12-30 08:18] LABS: CALCIUM 9.1 mg/dL (8.6-10.2); CREATININE 9.8 mg/dL (0.7-1.2); GLOMERULAR FILTRATION RATE 5.7 mL/min (>60)
[2016-12-30] MEDS: Heparin 5000 units/ml inj SUBQ SCH ×2 (08:38→21:05)
[2016-12-30] MEDS: Furosemide 80mg tab ORAL SCH ×2 (08:39→17:32)
[2016-12-30] MEDS: Aspirin EC 81mg tab ORAL SCH (08:39)
[2016-12-30] MEDS: Minoxidil 2.5mg tab ORAL SCH ×2 (08:40→21:04)
[2016-12-30] MEDS: Carvedilol 25mg Tab ORAL SCH ×2 (08:40→21:04)
[2016-12-30 11:38] VITALS: BP 146/62
--- NOTE | 2016-12-30 12:19 | Internal Med Progress Note ---
Subjective Date of Service: Dec 30, 2016 Physician Name Edwina Oneill Attending Physician Jimbo Acosta MD Current Medications Medications (Trade) Dose Ordered Sig/Fish Route PRN Reason Start Time Stop Time Status Last Admin Dose Admin Acetaminophen (Tylenol) 650 mg Q4H PRN ORAL Mild Pain (Pain Scale 1-3) 12/29/16 00:30 01/28/17 00:29 Amlodipine Besylate (Norvasc) 10 mg DAILY ORAL 12/29/16 09:00 01/28/17 08:59 Aspirin (Ecotrin) 81 mg DAILY ORAL 12/29/16 09:00 01/28/17 08:59 12/30/16 08:39 Carvedilol (Coreg) 25 mg Q12HR ORAL 12/29/16 09:00 01/28/17 08:59 Clonidine HCl (Catapres) 0.2 mg Q4H PRN ORAL SBP> 160 12/29/16 00:30 01/28/17 00:29 Clopidogrel Bisulfate (Plavix) 75 mg DAILY ORAL 12/29/16 09:00 01/28/17 08:59 12/30/16 08:39 Dextrose (Dextrose 50%) STAT PRN IV Hypoglycemia 12/29/16 12:45 01/28/17 12:44 Diphenhydramine HCl (Benadryl) 25 mg Q6H PRN ORAL Itching/Pruritis 12/29/16 00:30 01/28/17 00:29 Epoetin Armand (Procrit (for ESRD on dialysis)) 10,000 units WED-WED-WED SUBQ 12/30/16 21:00 01/29/17 20:59 Furosemide (Lasix) 80 mg TWICE A DAY ORAL 12/29/16 09:00 01/28/17 08:59 12/30/16 08:39 Gabapentin (Neurontin) 300 mg EVERY 8 HOURS ORAL 12/29/16 06:00 01/28/17 05:59 12/30/16 05:53 Heparin Sodium (Porcine) (Heparin 5000 units/ml) 5,000 units EVERY 12 HOURS SUBQ 12/29/16 09:00 01/28/17 08:59 12/30/16 08:38 Hydralazine HCl (Apresoline) 100 mg Q8HR ORAL 12/29/16 06:00 01/28/17 05:59 Insulin Aspart (NovoLOG) BEFORE MEALS AND HS SUBQ 12/29/16 06:30 01/28/17 06:29 12/30/16 11:52 Insulin Detemir (Levemir) 8 units BEDTIME SUBQ 12/29/16 21:00 01/28/17 20:59 12/29/16 20:53 Lorazepam (Ativan) 1 mg Q4H PRN ORAL For Anxiety 12/29/16 00:30 01/05/17 00:29 Minoxidil (Loniten) 2.5 mg Q12HR ORAL 12/29/16 09:00 01/28/17 08:59 12/29/16 20:51 Ondansetron HCl (Zofran) 4 mg EVERY 4 HOURS PRN IVP Nausea & Vomiting 12/29/16 01:00 01/28/17 00:59 Pantoprazole (Protonix) 40 mg DAILY ORAL 12/29/16 09:00 01/28/17 08:59 12/30/16 08:39 Allergies: Coded Allergies: No Known Allergies (Unverified , 09/26/14) ROS Limited/Unobtainable: No Constitutional: Reports: no symptoms HEENT: Reports: no symptoms Cardiovascular: Reports: no symptoms Respiratory: Reports: no symptoms Gastrointestinal/Abdominal: Reports: no symptoms Genitourinary: Reports: no symptoms Neurologic/Psychiatric: Reports: no symptoms Subjective 46 YO M admitted with nausea, vomiting, diarrhea and epigastric pain. Now enteritis. Cover for Int Kenneth-Dr Acosta. Objective Last Vital Signs Date Time Temp Pulse Resp B/P Pulse Ox O2 Delivery O2 Flow Rate FiO2 12/30/16 11:38 98.0 60 20 146/62 99 Room Air 12/30/16 04:43 3.0 Laboratory Tests Test 12/30/16 05:45 White Blood Count 6.6 K/UL (4.8-10.8) Red Blood Count 2.88 M/UL (4.70-6.10) L Hemoglobin 9.6 G/DL (14.2-18.0) L Hematocrit 28.6 % (42.0-52.0) L Mean Corpuscular Volume 99 FL (80-99) Mean Corpuscular Hemoglobin 33.4 PG (27.0-31.0) H Mean Corpuscular Hemoglobin Concent 33.6 G/DL (32.0-36.0) Red Cell Distribution Width 12.2 % (11.6-14.8) Platelet Count 157 K/UL (150-450) Mean Platelet Volume 9.7 FL (6.5-10.1) Neutrophils (%) (Auto) 63.4 % (45.0-75.0) Lymphocytes (%) (Auto) 20.6 % (20.0-45.0) Monocytes (%) (Auto) 12.5 % (1.0-10.0) H Eosinophils (%) (Auto) 2.3 % (0.0-3.0) Basophils (%) (Auto) 1.2 % (0.0-2.0) Prothrombin Time 11.6 SEC (9.30-11.50) H Prothromb Time International Ratio 1.1 (0.9-1.1) Activated Partial Thromboplast Time 31 SEC (23-33) Sodium Level 139 mEQ/L (135-145) Potassium Level 5.0 mEQ/L (3.4-4.9) H Chloride Level 90 mEQ/L (98-107) L Carbon Dioxide Level 30 mEQ/L (20-30) Anion Gap 19 (5-15) H Blood Urea Nitrogen 74 mg/dL (7-23) H Creatinine 9.8 mg/dL (0.7-1.2) H Estimat Glomerular Filtration Rate 5.7 mL/min (>60) Glucose Level 62 mg/dL (74-106) L Calcium Level 9.1 mg/dL (8.6-10.2) Microbiology Date/Time Source Procedure Growth Status 12/28/16 09:45 Nasal Nares MRSA Culture - Final NO METHICILLIN RESISTANT STAPH AUREUS... Complete Intake and Output 12/29/16 12/30/16 19:00 07:00 Intake Total 360 ml 240 ml Balance 360 ml 240 ml Intake Oral 360 ml 240 ml Objective General Appearance: WD/WN, no apparent distress, alert EENT: PERRL/EOMI, normal ENT inspection Neck: non-tender, normal alignment, supple Cardiovascular: normal peripheral pulses, normal rate, regular rhythm, no gallop/murmur, no JVD Respiratory/Chest: chest wall non-tender, lungs clear, normal breath sounds, no respiratory distress, no accessory muscle use Abdomen: normal bowel sounds, non tender, soft, no organomegaly, no mass Extremities: normal range of motion Neurologic: solutions developer II-XII grossly normal, no motor/sensory deficits Skin: normal pigmentation Assessment/Plan Problem List: (1) Epigastric pain Assessment & Plan: See GI workup in progress (2) Diabetes mellitus type II, controlled (3) HTN (hypertension) (4) ESRD (end stage renal disease) on dialysis Assessment & Plan: Last hemodialysis 12/28/16-See nephrology note. (5) Congestive heart failure (CHF) (6) Nausea, vomiting, and diarrhea Assessment & Plan: Resolving; see GI note. (7) Enteritis Assessment & Plan: Will require colonoscopy and endoscopy-see GI note. (8) CHF (congestive heart failure) Assessment & Plan: See cardiology note. EDWINA ONEILL Dec 30, 2016 12:19
[2016-12-30 16:06] VITALS: BP 156/76
[2016-12-30 20:00] VITALS: BP 136/57
--- NOTE | 2016-12-30 20:18 | Cardiac Electrophysiology PN ---
Assessment/Plan Assessment/Plan 1. Accelerated hypertension. Continue Norvasc 10 mg daily, Coreg 25 mg b.i.d., minoxidil 2.5 mg b.i.d.,hydralazine 100 mg three times daily and HD. 2. Congestive heart failure due to diastolic dysfunction on hemodialysis. EF 55%. 3. Diabetes. 4. Abdominal pain, nausea, and vomiting. Stool OB pending per Dr. Nunez. 5. ESRD on HD DW RN Subjective Subjective Comfortable in NAD. No chest pain or SOB. Awaiting placement. Had HD. Echo EF 65%. Objective Last 24 Hour Vital Signs Date Time Temp Pulse Resp B/P Pulse Ox O2 Delivery O2 Flow Rate FiO2 12/30/16 16:06 97.5 64 20 156/76 98 Room Air 12/30/16 13:19 146/62 12/30/16 11:38 98.0 60 20 146/62 99 Room Air 12/30/16 08:01 97.3 58 20 121/58 97 Room Air 12/30/16 06:00 114/56 12/30/16 04:43 97.6 61 18 114/56 98 Nasal Cannula 3.0 12/30/16 00:00 98.1 56 18 110/50 99 Nasal Cannula 3.0 12/29/16 22:00 124/61 12/29/16 20:58 61 135/61 12/29/16 20:51 135/61 Intake and Output 12/29/16 12/30/16 19:00 07:00 Intake Total 360 ml 240 ml Balance 360 ml 240 ml Intake Oral 360 ml 240 ml Laboratory Tests Test 12/30/16 05:45 12/30/16 15:10 White Blood Count 6.6 K/UL (4.8-10.8) Red Blood Count 2.88 M/UL (4.70-6.10) L Hemoglobin 9.6 G/DL (14.2-18.0) L Hematocrit 28.6 % (42.0-52.0) L Mean Corpuscular Volume 99 FL (80-99) Mean Corpuscular Hemoglobin 33.4 PG (27.0-31.0) H Mean Corpuscular Hemoglobin Concent 33.6 G/DL (32.0-36.0) Red Cell Distribution Width 12.2 % (11.6-14.8) Platelet Count 157 K/UL (150-450) Mean Platelet Volume 9.7 FL (6.5-10.1) Neutrophils (%) (Auto) 63.4 % (45.0-75.0) Lymphocytes (%) (Auto) 20.6 % (20.0-45.0) Monocytes (%) (Auto) 12.5 % (1.0-10.0) H Eosinophils (%) (Auto) 2.3 % (0.0-3.0) Basophils (%) (Auto) 1.2 % (0.0-2.0) Prothrombin Time 11.6 SEC (9.30-11.50) H Prothromb Time International Ratio 1.1 (0.9-1.1) Activated Partial Thromboplast Time 31 SEC (23-33) Sodium Level 139 mEQ/L (135-145) Potassium Level 5.0 mEQ/L (3.4-4.9) H Chloride Level 90 mEQ/L (98-107) L Carbon Dioxide Level 30 mEQ/L (20-30) Anion Gap 19 (5-15) H Blood Urea Nitrogen 74 mg/dL (7-23) H Creatinine 9.8 mg/dL (0.7-1.2) H Estimat Glomerular Filtration Rate 5.7 mL/min (>60) Glucose Level 62 mg/dL (74-106) L Calcium Level 9.1 mg/dL (8.6-10.2) Stool Occult Blood Pending Microbiology Date/Time Source Procedure Growth Status 12/28/16 09:45 Nasal Nares MRSA Culture - Final NO METHICILLIN RESISTANT STAPH AUREUS... Complete Objective NECK: Shows no JVD. LUNGS: Decreased breath sounds. CARDIOVASCULAR: Shows regular S1 and S2 with no gallop. ABDOMEN: Soft. EXTREMITIES: No pitting edema. ANAYA HODO Dec 30, 2016 20:18
[2016-12-30] MEDS ORDERED: Epogen (for ESRD on dialysis) SUBQ SCH (21:00)
[2016-12-30] MEDS: Levemir Flexpen SUBQ SCH (21:07)
[2016-12-30] MEDS ORDERED: NS 550ML IV ONE (22:28)
--- NOTE | 2016-12-30 23:05 | General Progress Note ---
Assessment/Plan Assessment/Plan Assessment - N/V, transient and resolved - ? gastroenteritis - ESRD -- PD Recommendations - push po - OOB - follow symptoms Subjective Allergies: Coded Allergies: No Known Allergies (Unverified , 09/26/14) Subjective Feels better no vomiting or abdominal pain tolerating liquid diet Objective Last 24 Hour Vital Signs Date Time Temp Pulse Resp B/P Pulse Ox O2 Delivery O2 Flow Rate FiO2 12/30/16 22:43 142/57 12/30/16 21:04 136/57 12/30/16 21:04 69 136/57 12/30/16 20:00 98.2 69 20 136/57 92 Room Air 12/30/16 16:06 97.5 64 20 156/76 98 Room Air 12/30/16 13:19 146/62 12/30/16 11:38 98.0 60 20 146/62 99 Room Air 12/30/16 08:01 97.3 58 20 121/58 97 Room Air 12/30/16 06:00 114/56 12/30/16 04:43 97.6 61 18 114/56 98 Nasal Cannula 3.0 12/30/16 00:00 98.1 56 18 110/50 99 Nasal Cannula 3.0 Intake and Output 12/29/16 12/30/16 19:00 07:00 Intake Total 360 ml 240 ml Balance 360 ml 240 ml Intake Oral 360 ml 240 ml Laboratory Tests 12/30/16 05:45: White Blood Count 6.6, Red Blood Count 2.88L, Hemoglobin 9.6L, Hematocrit 28.6L , Mean Corpuscular Volume 99, Mean Corpuscular Hemoglobin 33.4H, Mean Corpuscular Hemoglobin Concent 33.6, Red Cell Distribution Width 12.2, Platelet Count 157, Mean Platelet Volume 9.7, Neutrophils (%) (Auto) 63.4, Lymphocytes (% ) (Auto) 20.6, Monocytes (%) (Auto) 12.5H, Eosinophils (%) (Auto) 2.3, Basophils (%) (Auto) 1.2, Prothrombin Time 11.6H, Prothromb Time International Ratio 1.1, Activated Partial Thromboplast Time 31, Sodium Level 139, Potassium Level 5.0H, Chloride Level 90L, Carbon Dioxide Level 30, Anion Gap 19H, Blood Urea Nitrogen 74H, Creatinine 9.8H, Estimat Glomerular Filtration Rate 5.7, Glucose Level 62L, Calcium Level 9.1 12/30/16 15:10: Stool Occult Blood [Pending] Height (Feet): 5 Height (Inches): 7.00 Weight (Pounds): 165 Objective Thin man NCAT supple CTA RRR Soft NT no edema non focal CELSO LINCOLN Dec 30, 2016 23:05
[2016-12-31] VITALS (7 sets, daily range): BP systolic 111–147; BP diastolic 52–80
[2016-12-31] MEDS: HydrALAZINE 50mg tab ORAL SCH ×3 (05:47→22:00)
[2016-12-31] MEDS: NovoLOG Insulin Flexpen SUBQ SCH ×4 (05:50→21:13)
[2016-12-31 08:07] LABS: BASOPHILS % (AUTO) 1.4 % (0.0-2.0); EOSINOPHILS % (AUTO) 2.1 % (0.0-3.0); MEAN CORPUSCULAR HEMOGLOBIN 33.3 PG (27.0-31.0); MEAN CORPUSCULAR HGB CONC 33.2 G/DL (32.0-36.0); MEAN CORPUSCULAR VOLUME 100 FL (80-99); MEAN PLATELET VOLUME 8.7 FL (6.5-10.1); MONOCYTES % (AUTO) 12.2 % (1.0-10.0); NEUTROPHILS % (AUTO) 60.3 % (45.0-75.0); PLATELET COUNT 177 K/UL (150-450); RED BLOOD COUNT 3.13 M/UL (4.70-6.10); RED CELL DISTRIBUTION WIDTH 12.6 % (11.6-14.8); WHITE BLOOD COUNT 7.3 K/UL (4.8-10.8)
[2016-12-31 08:30] LABS: CREATININE 8.1 mg/dL (0.7-1.2); GLOMERULAR FILTRATION RATE 7.1 mL/min (>60); POTASSIUM 4.9 mEQ/L (3.4-4.9)
[2016-12-31] MEDS: Aspirin EC 81mg tab ORAL SCH (08:32)
[2016-12-31] MEDS: Furosemide 80mg tab ORAL SCH ×2 (08:32→18:07)
[2016-12-31] MEDS: Heparin 5000 units/ml inj SUBQ SCH ×2 (08:34→21:11)
[2016-12-31] MEDS: Minoxidil 2.5mg tab ORAL SCH ×2 (08:34→21:09)
[2016-12-31] MEDS: Carvedilol 25mg Tab ORAL SCH ×2 (08:35→21:09)
--- NOTE | 2016-12-31 12:02 | Nephrology Progress Note ---
Assessment/Plan Assessment 1. Fluid overload. 2. End-stage renal disease. 3. Anemia of chronic kidney disease. 4. Hyperkalemia. 5. Uncontrolled diabetes. Plan plan dialysis in am hold all bp meds monitoring electrolyte restart epogen check phos Subjective Subjective had dialysis yesterday feeling ok continue to be hypotensive Objective Objective Last 24 Hour Vital Signs Date Time Temp Pulse Resp B/P Pulse Ox O2 Delivery O2 Flow Rate FiO2 12/31/16 08:50 98.2 73 19 119/58 100 Room Air 12/31/16 08:35 64 119/58 12/31/16 08:34 119/58 12/31/16 08:32 64 119/58 12/31/16 05:47 133/59 12/31/16 04:00 98.2 68 20 111/52 95 Room Air 12/31/16 00:00 98.8 95 18 130/54 95 Room Air 12/30/16 22:43 142/57 12/30/16 21:04 136/57 12/30/16 21:04 69 136/57 12/30/16 20:00 98.2 69 20 136/57 92 Room Air 12/30/16 16:06 97.5 64 20 156/76 98 Room Air 12/30/16 13:19 146/62 Intake and Output 12/30/16 12/31/16 19:00 07:00 Intake Total 700 ml 120 ml Balance 700 ml 120 ml Intake Oral 700 ml 120 ml Laboratory Tests 12/30/16 15:10: Stool Occult Blood [Pending] 12/31/16 06:05: White Blood Count 7.3, Red Blood Count 3.13L, Hemoglobin 10.4L, Hematocrit 31.4L , Mean Corpuscular Volume 100H, Mean Corpuscular Hemoglobin 33.3H, Mean Corpuscular Hemoglobin Concent 33.2, Red Cell Distribution Width 12.6, Platelet Count 177, Mean Platelet Volume 8.7, Neutrophils (%) (Auto) 60.3, Lymphocytes (% ) (Auto) 24.0, Monocytes (%) (Auto) 12.2H, Eosinophils (%) (Auto) 2.1, Basophils (%) (Auto) 1.4, Sodium Level 140, Potassium Level 4.9, Chloride Level 92L, Carbon Dioxide Level 34H, Anion Gap 14, Blood Urea Nitrogen 56H, Creatinine 8.1H, Estimat Glomerular Filtration Rate 7.1, Glucose Level 138H, Calcium Level 9.0 Height (Feet): 5 Height (Inches): 7.00 Weight (Pounds): 165 Objective HEAD AND NECK: No JVP. No LAD. No thyromegaly. Extraocular movement intact. Pupils reactive to light and accommodation. LUNGS: Bilateral decreased breathing sound on the both side otherwise clear. CARDIAC: Regular rate and rhythm. S1 and S2. No murmur. No rub. ABDOMEN: Soft, nontender, and nondistended. EXTREMITIES: Trace edema. No clubbing. No cyanosis. [facility] Dec 31, 2016 12:02
--- NOTE | 2016-12-31 13:46 | Cardiac Electrophysiology PN ---
Assessment/Plan Assessment/Plan 1. Accelerated hypertension. Continue Norvasc 10 mg daily, Coreg 25 mg b.i.d., Minoxidil 2.5 mg b.i.d.,hydralazine 100 mg three times daily and HD. Also on Lasix 80 po bid. 2. Congestive heart failure due to diastolic dysfunction on hemodialysis. EF 55%. 3. Diabetes. 4. Abdominal pain, nausea, and vomiting. Stool OB pending per Dr. Nunez. 5. ESRD on HD DW RN Subjective Subjective Comfortable in NAD. No chest pain or SOB. Had HD yesterday. Echo EF 65%. Objective Last 24 Hour Vital Signs Date Time Temp Pulse Resp B/P Pulse Ox O2 Delivery O2 Flow Rate FiO2 12/31/16 13:20 124/57 12/31/16 12:48 97.7 62 18 124/57 94 Room Air 12/31/16 08:50 98.2 73 19 119/58 100 Room Air 12/31/16 08:35 64 119/58 12/31/16 08:34 119/58 12/31/16 08:32 64 119/58 12/31/16 05:47 133/59 12/31/16 04:00 98.2 68 20 111/52 95 Room Air 12/31/16 00:00 98.8 95 18 130/54 95 Room Air 12/30/16 22:43 142/57 12/30/16 21:04 136/57 12/30/16 21:04 69 136/57 12/30/16 20:00 98.2 69 20 136/57 92 Room Air 12/30/16 16:06 97.5 64 20 156/76 98 Room Air Intake and Output 12/30/16 12/31/16 19:00 07:00 Intake Total 700 ml 120 ml Balance 700 ml 120 ml Intake Oral 700 ml 120 ml Laboratory Tests Test 12/30/16 15:10 12/31/16 06:05 Stool Occult Blood Pending White Blood Count 7.3 K/UL (4.8-10.8) Red Blood Count 3.13 M/UL (4.70-6.10) L Hemoglobin 10.4 G/DL (14.2-18.0) L Hematocrit 31.4 % (42.0-52.0) L Mean Corpuscular Volume 100 FL (80-99) H Mean Corpuscular Hemoglobin 33.3 PG (27.0-31.0) H Mean Corpuscular Hemoglobin Concent 33.2 G/DL (32.0-36.0) Red Cell Distribution Width 12.6 % (11.6-14.8) Platelet Count 177 K/UL (150-450) Mean Platelet Volume 8.7 FL (6.5-10.1) Neutrophils (%) (Auto) 60.3 % (45.0-75.0) Lymphocytes (%) (Auto) 24.0 % (20.0-45.0) Monocytes (%) (Auto) 12.2 % (1.0-10.0) H Eosinophils (%) (Auto) 2.1 % (0.0-3.0) Basophils (%) (Auto) 1.4 % (0.0-2.0) Sodium Level 140 mEQ/L (135-145) Potassium Level 4.9 mEQ/L (3.4-4.9) Chloride Level 92 mEQ/L (98-107) L Carbon Dioxide Level 34 mEQ/L (20-30) H Anion Gap 14 (5-15) Blood Urea Nitrogen 56 mg/dL (7-23) H Creatinine 8.1 mg/dL (0.7-1.2) H Estimat Glomerular Filtration Rate 7.1 mL/min (>60) Glucose Level 138 mg/dL (74-106) H Calcium Level 9.0 mg/dL (8.6-10.2) Objective NECK: Shows no JVD. LUNGS: Decreased breath sounds. CARDIOVASCULAR: Shows regular S1 and S2 with no gallop. ABDOMEN: Soft. EXTREMITIES: No pitting edema. ANAYA HOOD Dec 31, 2016 13:46
--- NOTE | 2016-12-31 15:31 | Internal Med Progress Note ---
Subjective Date of Service: Dec 31, 2016 Physician Name Edwina Lawson Attending Physician Jimbo Acosta MD Current Medications Medications (Trade) Dose Ordered Sig/Fish Route PRN Reason Start Time Stop Time Status Last Admin Dose Admin Acetaminophen (Tylenol) 650 mg Q4H PRN ORAL Mild Pain (Pain Scale 1-3) 12/29/16 00:30 01/28/17 00:29 Amlodipine Besylate (Norvasc) 10 mg DAILY ORAL 12/29/16 09:00 01/28/17 08:59 12/31/16 08:32 Aspirin (Ecotrin) 81 mg DAILY ORAL 12/29/16 09:00 01/28/17 08:59 12/31/16 08:32 Carvedilol (Coreg) 25 mg Q12HR ORAL 12/29/16 09:00 01/28/17 08:59 12/30/16 21:04 Clonidine HCl (Catapres) 0.2 mg Q4H PRN ORAL SBP> 160 12/29/16 00:30 01/28/17 00:29 Clopidogrel Bisulfate (Plavix) 75 mg DAILY ORAL 12/29/16 09:00 01/28/17 08:59 12/31/16 08:32 Dextrose (Dextrose 50%) STAT PRN IV Hypoglycemia 12/29/16 12:45 01/28/17 12:44 Diphenhydramine HCl (Benadryl) 25 mg Q6H PRN ORAL Itching/Pruritis 12/29/16 00:30 01/28/17 00:29 Epoetin Armand (Procrit (for ESRD on dialysis)) 10,000 units WED-WED-WED SUBQ 12/30/16 21:00 01/29/17 20:59 12/30/16 21:04 Furosemide (Lasix) 80 mg TWICE A DAY ORAL 12/29/16 09:00 01/28/17 08:59 12/31/16 08:32 Gabapentin (Neurontin) 300 mg EVERY 8 HOURS ORAL 12/29/16 06:00 01/28/17 05:59 12/31/16 13:19 Heparin Sodium (Porcine) (Heparin 5000 units/ml) 5,000 units EVERY 12 HOURS SUBQ 12/29/16 09:00 01/28/17 08:59 12/31/16 08:34 Hydralazine HCl (Apresoline) 100 mg Q8HR ORAL 12/29/16 06:00 01/28/17 05:59 12/31/16 13:20 Insulin Aspart (NovoLOG) BEFORE MEALS AND HS SUBQ 12/29/16 06:30 01/28/17 06:29 12/31/16 11:50 Insulin Detemir (Levemir) 8 units BEDTIME SUBQ 12/29/16 21:00 01/28/17 20:59 12/30/16 21:07 Lorazepam (Ativan) 1 mg Q4H PRN ORAL For Anxiety 12/29/16 00:30 01/05/17 00:29 Minoxidil (Loniten) 2.5 mg Q12HR ORAL 12/29/16 09:00 01/28/17 08:59 12/30/16 21:04 Ondansetron HCl (Zofran) 4 mg EVERY 4 HOURS PRN IVP Nausea & Vomiting 12/29/16 01:00 01/28/17 00:59 Pantoprazole (Protonix) 40 mg DAILY ORAL 12/29/16 09:00 01/28/17 08:59 12/31/16 08:32 Allergies: Coded Allergies: No Known Allergies (Unverified , 09/26/14) ROS Limited/Unobtainable: No Constitutional: Reports: no symptoms HEENT: Reports: no symptoms Cardiovascular: Reports: no symptoms Respiratory: Reports: no symptoms Gastrointestinal/Abdominal: Reports: no symptoms Genitourinary: Reports: no symptoms Neurologic/Psychiatric: Reports: no symptoms Subjective 46 YO M admitted with nausea, vomiting, diarrhea and epigastric pain. Now enteritis. Cover for Int Med-Dr Acosta.. Denies nausea, vomiting or diarrhea. Epigastric pain improved. Objective Last Vital Signs Date Time Temp Pulse Resp B/P Pulse Ox O2 Delivery O2 Flow Rate FiO2 12/31/16 13:20 124/57 12/31/16 12:48 97.7 62 18 94 Room Air 12/30/16 04:43 3.0 Laboratory Tests Test 12/31/16 06:05 White Blood Count 7.3 K/UL (4.8-10.8) Red Blood Count 3.13 M/UL (4.70-6.10) L Hemoglobin 10.4 G/DL (14.2-18.0) L Hematocrit 31.4 % (42.0-52.0) L Mean Corpuscular Volume 100 FL (80-99) H Mean Corpuscular Hemoglobin 33.3 PG (27.0-31.0) H Mean Corpuscular Hemoglobin Concent 33.2 G/DL (32.0-36.0) Red Cell Distribution Width 12.6 % (11.6-14.8) Platelet Count 177 K/UL (150-450) Mean Platelet Volume 8.7 FL (6.5-10.1) Neutrophils (%) (Auto) 60.3 % (45.0-75.0) Lymphocytes (%) (Auto) 24.0 % (20.0-45.0) Monocytes (%) (Auto) 12.2 % (1.0-10.0) H Eosinophils (%) (Auto) 2.1 % (0.0-3.0) Basophils (%) (Auto) 1.4 % (0.0-2.0) Sodium Level 140 mEQ/L (135-145) Potassium Level 4.9 mEQ/L (3.4-4.9) Chloride Level 92 mEQ/L (98-107) L Carbon Dioxide Level 34 mEQ/L (20-30) H Anion Gap 14 (5-15) Blood Urea Nitrogen 56 mg/dL (7-23) H Creatinine 8.1 mg/dL (0.7-1.2) H Estimat Glomerular Filtration Rate 7.1 mL/min (>60) Glucose Level 138 mg/dL (74-106) H Calcium Level 9.0 mg/dL (8.6-10.2) Intake and Output 12/30/16 12/31/16 19:00 07:00 Intake Total 700 ml 120 ml Balance 700 ml 120 ml Intake Oral 700 ml 120 ml Objective General Appearance: WD/WN, no apparent distress, alert EENT: PERRL/EOMI, normal ENT inspection Neck: non-tender, normal alignment, supple Cardiovascular: normal peripheral pulses, normal rate, regular rhythm, no gallop/murmur, no JVD Respiratory/Chest: chest wall non-tender, lungs clear, normal breath sounds, no respiratory distress, no accessory muscle use Abdomen: normal bowel sounds, non tender, soft, no organomegaly, no mass Extremities: normal range of motion Neurologic: supervisor seaming II-XII grossly normal, no motor/sensory deficits Skin: normal pigmentation Assessment/Plan Problem List: (1) Epigastric pain Assessment & Plan: See GI workup in progress (2) Diabetes mellitus type II, controlled (3) HTN (hypertension) (4) ESRD (end stage renal disease) on dialysis Assessment & Plan: Last hemodialysis 12/30/16-See nephrology note. (5) Congestive heart failure (CHF) (6) Nausea, vomiting, and diarrhea Assessment & Plan: Resolving; see GI note. (7) Enteritis Assessment & Plan: Will not require colonoscopy and endoscopy-see GI note. (8) CHF (congestive heart failure) Assessment & Plan: See cardiology note. Status: stable Assessment/Plan D/C in am 01/01/17 after dialysis. F/U with PCP EDWINA Caba MD Dec 31, 2016 15:31
[2016-12-31] MEDS: Levemir Flexpen SUBQ SCH (21:12)
--- NOTE | 2016-12-31 23:14 | General Progress Note ---
Assessment/Plan Assessment/Plan Assessment - N/V, transient and resolved - ? gastroenteritis - ESRD -- PD Recommendations - push po - OOB - follow symptoms Subjective Allergies: Coded Allergies: No Known Allergies (Unverified , 09/26/14) Subjective Feels better no vomiting or abdominal pain tolerating po Objective Last 24 Hour Vital Signs Date Time Temp Pulse Resp B/P Pulse Ox O2 Delivery O2 Flow Rate FiO2 12/31/16 22:00 113/53 12/31/16 21:09 144/70 12/31/16 21:09 60 144/70 12/31/16 19:36 97.3 60 18 144/70 96 Room Air 12/31/16 16:01 97.5 59 18 147/80 98 Room Air 12/31/16 13:20 124/57 12/31/16 12:48 97.7 62 18 124/57 94 Room Air 12/31/16 08:50 98.2 73 19 119/58 100 Room Air 12/31/16 08:35 64 119/58 12/31/16 08:34 119/58 12/31/16 08:32 64 119/58 12/31/16 05:47 133/59 12/31/16 04:00 98.2 68 20 111/52 95 Room Air 12/31/16 00:00 98.8 95 18 130/54 95 Room Air Intake and Output 12/30/16 12/31/16 19:00 07:00 Intake Total 700 ml 120 ml Balance 700 ml 120 ml Intake Oral 700 ml 120 ml Laboratory Tests 12/31/16 06:05: White Blood Count 7.3, Red Blood Count 3.13L, Hemoglobin 10.4L, Hematocrit 31.4L , Mean Corpuscular Volume 100H, Mean Corpuscular Hemoglobin 33.3H, Mean Corpuscular Hemoglobin Concent 33.2, Red Cell Distribution Width 12.6, Platelet Count 177, Mean Platelet Volume 8.7, Neutrophils (%) (Auto) 60.3, Lymphocytes (% ) (Auto) 24.0, Monocytes (%) (Auto) 12.2H, Eosinophils (%) (Auto) 2.1, Basophils (%) (Auto) 1.4, Sodium Level 140, Potassium Level 4.9, Chloride Level 92L, Carbon Dioxide Level 34H, Anion Gap 14, Blood Urea Nitrogen 56H, Creatinine 8.1H, Estimat Glomerular Filtration Rate 7.1, Glucose Level 138H, Calcium Level 9.0 Height (Feet): 5 Height (Inches): 7.00 Weight (Pounds): 165 Objective Thin man NCAT supple CTA RRR Soft NT no edema non focal CELSO LINCOLN Dec 31, 2016 23:13
--- NOTE | 2016-12-31 23:37 | Pulmonology Progress Note ---
Assessment/Plan Problems: (1) Congestive heart failure (CHF) (2) Hyperkalemia (3) ESRD (end stage renal disease) on dialysis (4) Nausea & vomiting (5) Hypertension Assessment/Plan bp better echo noted, marcos HD by nephrology monitor BP anemia w/u, on Epogen check electroltyes pt/ot Subjective ROS Limited/Unobtainable: No Interval Events: late note 11/29 Allergies: Coded Allergies: No Known Allergies (Unverified , 09/26/14) Objective Last 24 Hour Vital Signs Date Time Temp Pulse Resp B/P Pulse Ox O2 Delivery O2 Flow Rate FiO2 12/31/16 22:00 113/53 12/31/16 21:09 144/70 12/31/16 21:09 60 144/70 12/31/16 19:36 97.3 60 18 144/70 96 Room Air 12/31/16 16:01 97.5 59 18 147/80 98 Room Air 12/31/16 13:20 124/57 12/31/16 12:48 97.7 62 18 124/57 94 Room Air 12/31/16 08:50 98.2 73 19 119/58 100 Room Air 12/31/16 08:35 64 119/58 12/31/16 08:34 119/58 12/31/16 08:32 64 119/58 12/31/16 05:47 133/59 12/31/16 04:00 98.2 68 20 111/52 95 Room Air 12/31/16 00:00 98.8 95 18 130/54 95 Room Air Intake and Output 12/30/16 12/31/16 19:00 07:00 Intake Total 700 ml 120 ml Balance 700 ml 120 ml Intake Oral 700 ml 120 ml General Appearance: WD/WN HEENT: normocephalic, atraumatic Respiratory/Chest: chest wall non-tender, lungs clear Cardiovascular: normal peripheral pulses, normal rate Abdomen: normal bowel sounds, soft, non tender Genitourinary: normal external genitalia Extremities: no cyanosis Laboratory Tests 12/31/16 06:05: White Blood Count 7.3, Red Blood Count 3.13L, Hemoglobin 10.4L, Hematocrit 31.4L , Mean Corpuscular Volume 100H, Mean Corpuscular Hemoglobin 33.3H, Mean Corpuscular Hemoglobin Concent 33.2, Red Cell Distribution Width 12.6, Platelet Count 177, Mean Platelet Volume 8.7, Neutrophils (%) (Auto) 60.3, Lymphocytes (% ) (Auto) 24.0, Monocytes (%) (Auto) 12.2H, Eosinophils (%) (Auto) 2.1, Basophils (%) (Auto) 1.4, Sodium Level 140, Potassium Level 4.9, Chloride Level 92L, Carbon Dioxide Level 34H, Anion Gap 14, Blood Urea Nitrogen 56H, Creatinine 8.1H, Estimat Glomerular Filtration Rate 7.1, Glucose Level 138H, Calcium Level 9.0 Current Medications Medications (Trade) Dose Ordered Sig/Fish Route PRN Reason Start Time Stop Time Status Last Admin Dose Admin Acetaminophen (Tylenol) 650 mg Q4H PRN ORAL Mild Pain (Pain Scale 1-3) 12/29/16 00:30 01/28/17 00:29 Amlodipine Besylate (Norvasc) 10 mg DAILY ORAL 12/29/16 09:00 01/28/17 08:59 12/31/16 08:32 Aspirin (Ecotrin) 81 mg DAILY ORAL 12/29/16 09:00 01/28/17 08:59 12/31/16 08:32 Carvedilol (Coreg) 25 mg Q12HR ORAL 12/29/16 09:00 01/28/17 08:59 12/31/16 21:09 Clonidine HCl (Catapres) 0.2 mg Q4H PRN ORAL SBP> 160 12/29/16 00:30 01/28/17 00:29 Clopidogrel Bisulfate (Plavix) 75 mg DAILY ORAL 12/29/16 09:00 01/28/17 08:59 12/31/16 08:32 Dextrose (Dextrose 50%) STAT PRN IV Hypoglycemia 12/29/16 12:45 01/28/17 12:44 Diphenhydramine HCl (Benadryl) 25 mg Q6H PRN ORAL Itching/Pruritis 12/29/16 00:30 01/28/17 00:29 Epoetin Armand (Procrit (for ESRD on dialysis)) 10,000 units WED-WED-WED SUBQ 12/30/16 21:00 01/29/17 20:59 12/30/16 21:04 Furosemide (Lasix) 80 mg TWICE A DAY ORAL 12/29/16 09:00 01/28/17 08:59 12/31/16 18:07 Gabapentin (Neurontin) 300 mg EVERY 8 HOURS ORAL 12/29/16 06:00 01/28/17 05:59 12/31/16 22:39 Heparin Sodium (Porcine) (Heparin 5000 units/ml) 5,000 units EVERY 12 HOURS SUBQ 12/29/16 09:00 01/28/17 08:59 12/31/16 21:11 Hydralazine HCl (Apresoline) 100 mg Q8HR ORAL 12/29/16 06:00 01/28/17 05:59 12/31/16 13:20 Insulin Aspart (NovoLOG) BEFORE MEALS AND HS SUBQ 12/29/16 06:30 01/28/17 06:29 12/31/16 21:13 Insulin Detemir (Levemir) 8 units BEDTIME SUBQ 12/29/16 21:00 01/28/17 20:59 12/31/16 21:12 Lorazepam (Ativan) 1 mg Q4H PRN ORAL For Anxiety 12/29/16 00:30 01/05/17 00:29 Minoxidil (Loniten) 2.5 mg Q12HR ORAL 12/29/16 09:00 01/28/17 08:59 12/31/16 21:09 Ondansetron HCl (Zofran) 4 mg EVERY 4 HOURS PRN IVP Nausea & Vomiting 12/29/16 01:00 01/28/17 00:59 Pantoprazole (Protonix) 40 mg DAILY ORAL 12/29/16 09:00 01/28/17 08:59 12/31/16 08:32 IMELDA SATNIZO Dec 31, 2016 23:37
--- NOTE | 2016-12-31 23:38 | Pulmonology Progress Note ---
Assessment/Plan Problems: (1) Congestive heart failure (CHF) (2) Hyperkalemia (3) ESRD (end stage renal disease) on dialysis (4) Nausea & vomiting (5) Hypertension Assessment/Plan HD by nephrology monitor BP anemia w/u, on Epogen check electroltyes titrate cardiac med pt/ot dc planning Subjective ROS Limited/Unobtainable: No Constitutional: Reports: no symptoms HEENT: Repors: no symptoms Respiratory: Reports: no symptoms Allergies: Coded Allergies: No Known Allergies (Unverified , 09/26/14) Objective Last 24 Hour Vital Signs Date Time Temp Pulse Resp B/P Pulse Ox O2 Delivery O2 Flow Rate FiO2 12/31/16 22:00 113/53 12/31/16 21:09 144/70 12/31/16 21:09 60 144/70 12/31/16 19:36 97.3 60 18 144/70 96 Room Air 12/31/16 16:01 97.5 59 18 147/80 98 Room Air 12/31/16 13:20 124/57 12/31/16 12:48 97.7 62 18 124/57 94 Room Air 12/31/16 08:50 98.2 73 19 119/58 100 Room Air 12/31/16 08:35 64 119/58 12/31/16 08:34 119/58 12/31/16 08:32 64 119/58 12/31/16 05:47 133/59 12/31/16 04:00 98.2 68 20 111/52 95 Room Air 12/31/16 00:00 98.8 95 18 130/54 95 Room Air Intake and Output 12/30/16 12/31/16 19:00 07:00 Intake Total 700 ml 120 ml Balance 700 ml 120 ml Intake Oral 700 ml 120 ml General Appearance: WD/WN HEENT: normocephalic, atraumatic Respiratory/Chest: chest wall non-tender, lungs clear Cardiovascular: normal peripheral pulses, normal rate Abdomen: normal bowel sounds, soft, non tender Genitourinary: normal external genitalia Extremities: no cyanosis Skin: no rash Laboratory Tests 12/31/16 06:05: White Blood Count 7.3, Red Blood Count 3.13L, Hemoglobin 10.4L, Hematocrit 31.4L , Mean Corpuscular Volume 100H, Mean Corpuscular Hemoglobin 33.3H, Mean Corpuscular Hemoglobin Concent 33.2, Red Cell Distribution Width 12.6, Platelet Count 177, Mean Platelet Volume 8.7, Neutrophils (%) (Auto) 60.3, Lymphocytes (% ) (Auto) 24.0, Monocytes (%) (Auto) 12.2H, Eosinophils (%) (Auto) 2.1, Basophils (%) (Auto) 1.4, Sodium Level 140, Potassium Level 4.9, Chloride Level 92L, Carbon Dioxide Level 34H, Anion Gap 14, Blood Urea Nitrogen 56H, Creatinine 8.1H, Estimat Glomerular Filtration Rate 7.1, Glucose Level 138H, Calcium Level 9.0 Current Medications Medications (Trade) Dose Ordered Sig/Fish Route PRN Reason Start Time Stop Time Status Last Admin Dose Admin Acetaminophen (Tylenol) 650 mg Q4H PRN ORAL Mild Pain (Pain Scale 1-3) 12/29/16 00:30 01/28/17 00:29 Amlodipine Besylate (Norvasc) 10 mg DAILY ORAL 12/29/16 09:00 01/28/17 08:59 12/31/16 08:32 Aspirin (Ecotrin) 81 mg DAILY ORAL 12/29/16 09:00 01/28/17 08:59 12/31/16 08:32 Carvedilol (Coreg) 25 mg Q12HR ORAL 12/29/16 09:00 01/28/17 08:59 12/31/16 21:09 Clonidine HCl (Catapres) 0.2 mg Q4H PRN ORAL SBP> 160 12/29/16 00:30 01/28/17 00:29 Clopidogrel Bisulfate (Plavix) 75 mg DAILY ORAL 12/29/16 09:00 01/28/17 08:59 12/31/16 08:32 Dextrose (Dextrose 50%) STAT PRN IV Hypoglycemia 12/29/16 12:45 01/28/17 12:44 Diphenhydramine HCl (Benadryl) 25 mg Q6H PRN ORAL Itching/Pruritis 12/29/16 00:30 01/28/17 00:29 Epoetin Armand (Procrit (for ESRD on dialysis)) 10,000 units WED-WED-WED SUBQ 12/30/16 21:00 01/29/17 20:59 12/30/16 21:04 Furosemide (Lasix) 80 mg TWICE A DAY ORAL 12/29/16 09:00 01/28/17 08:59 12/31/16 18:07 Gabapentin (Neurontin) 300 mg EVERY 8 HOURS ORAL 12/29/16 06:00 01/28/17 05:59 12/31/16 22:39 Heparin Sodium (Porcine) (Heparin 5000 units/ml) 5,000 units EVERY 12 HOURS SUBQ 12/29/16 09:00 01/28/17 08:59 12/31/16 21:11 Hydralazine HCl (Apresoline) 100 mg Q8HR ORAL 12/29/16 06:00 01/28/17 05:59 12/31/16 13:20 Insulin Aspart (NovoLOG) BEFORE MEALS AND HS SUBQ 12/29/16 06:30 01/28/17 06:29 12/31/16 21:13 Insulin Detemir (Levemir) 8 units BEDTIME SUBQ 12/29/16 21:00 01/28/17 20:59 12/31/16 21:12 Lorazepam (Ativan) 1 mg Q4H PRN ORAL For Anxiety 12/29/16 00:30 01/05/17 00:29 Minoxidil (Loniten) 2.5 mg Q12HR ORAL 12/29/16 09:00 01/28/17 08:59 12/31/16 21:09 Ondansetron HCl (Zofran) 4 mg EVERY 4 HOURS PRN IVP Nausea & Vomiting 12/29/16 01:00 01/28/17 00:59 Pantoprazole (Protonix) 40 mg DAILY ORAL 12/29/16 09:00 01/28/17 08:59 12/31/16 08:32 IMELDA SANTIZO Dec 31, 2016 23:38
[2017-01-01 04:37] VITALS: BP 131/61
[2017-01-01] MEDS: NovoLOG Insulin Flexpen SUBQ SCH ×3 (05:46→16:40)
[2017-01-01] MEDS: HydrALAZINE 50mg tab ORAL SCH ×2 (05:46→14:00)
[2017-01-01 07:02] LABS: EOSINOPHILS % (AUTO) 2.8 % (0.0-3.0); LYMPHOCYTES % (AUTO) 23.7 % (20.0-45.0); MEAN CORPUSCULAR HEMOGLOBIN 33.7 PG (27.0-31.0); MEAN CORPUSCULAR HGB CONC 33.4 G/DL (32.0-36.0); MEAN CORPUSCULAR VOLUME 101 FL (80-99); MEAN PLATELET VOLUME 8.3 FL (6.5-10.1); MONOCYTES % (AUTO) 12.2 % (1.0-10.0); NEUTROPHILS % (AUTO) 60.3 % (45.0-75.0); PLATELET COUNT 146 K/UL (150-450); RED BLOOD COUNT 2.75 M/UL (4.70-6.10); RED CELL DISTRIBUTION WIDTH 12.9 % (11.6-14.8); WHITE BLOOD COUNT 7.2 K/UL (4.8-10.8)
[2017-01-01 07:25] LABS: CALCIUM 9.2 mg/dL (8.6-10.2); CREATININE 9.4 mg/dL (0.7-1.2); TOTAL PROTEIN 6.7 g/dL (6.6-8.7)
--- NOTE | 2017-01-01 07:28 | Pulmonology Progress Note ---
Assessment/Plan Assessment/Plan ASSESSMENT CHF 2 to diastolic dysfunction ESRD on HD hyperkalemia HTN urgency anemia DM HTN abdominal pain with nausea and vomiting due to possible gastroenteritis PLAN OF CARE MS floor nephro follows HD as per nephro monitor renal parameters, lytes hyperkalemia resolved BP management with multiple regimen of BB, CCB Minoxidil, Hydralazine and Lasix cardio follows ECHO with EF 55% and evidence of diastolic dysfunction BS management with Levemir and SS of insulin, HgA1c -6.9 PT/OT DVT GI prophylaxis per GI all GI symptoms resolved, possible were due to gastroenteritis tolerates diet push po CEA WNL HH sable per GI treat symptomatically dc today after HD case discussed and evaluated by supervising physician Subjective Allergies: Coded Allergies: No Known Allergies (Unverified , 09/26/14) Subjective HD in progress afebrile, no leukocytosis BP controlled tolerates diet, no n/v/ no abdominal pain Objective Last 24 Hour Vital Signs Date Time Temp Pulse Resp B/P Pulse Ox O2 Delivery O2 Flow Rate FiO2 01/01/17 05:46 131/61 01/01/17 04:37 98.2 60 20 131/61 97 Room Air 12/31/16 23:49 99.7 64 19 113/55 97 Room Air 12/31/16 22:00 113/53 12/31/16 21:09 144/70 12/31/16 21:09 60 144/70 12/31/16 19:36 97.3 60 18 144/70 96 Room Air 12/31/16 16:01 97.5 59 18 147/80 98 Room Air 12/31/16 13:20 124/57 12/31/16 12:48 97.7 62 18 124/57 94 Room Air 12/31/16 08:50 98.2 73 19 119/58 100 Room Air 12/31/16 08:35 64 119/58 12/31/16 08:34 119/58 12/31/16 08:32 64 119/58 Intake and Output 12/31/16 01/01/17 19:00 07:00 # Voids 3 General Appearance: WD/WN, no acute distress HEENT: normocephalic, atraumatic, anicteric, mucous membranes moist, PERRL Respiratory/Chest: lungs clear, no respiratory distress, no accessory muscle use Cardiovascular: normal peripheral pulses, normal rate, no JVD Abdomen: normal bowel sounds, soft, non tender, non distended Genitourinary: normal external genitalia Extremities: no edema Neurologic/Psychiatric: no motor/sensory deficits, alert, oriented x 3, responsive Musculoskeletal: normal muscle bulk Laboratory Tests 01/01/17 05:30: White Blood Count 7.2, Red Blood Count 2.75L, Hemoglobin 9.3L, Hematocrit 27.8L , Mean Corpuscular Volume 101H, Mean Corpuscular Hemoglobin 33.7H, Mean Corpuscular Hemoglobin Concent 33.4, Red Cell Distribution Width 12.9, Platelet Count 146L, Mean Platelet Volume 8.3, Neutrophils (%) (Auto) 60.3, Lymphocytes ( %) (Auto) 23.7, Monocytes (%) (Auto) 12.2H, Eosinophils (%) (Auto) 2.8, Basophils (%) (Auto) 1.0, Sodium Level [Pending], Potassium Level [Pending], Chloride Level [Pending], Carbon Dioxide Level [Pending], Blood Urea Nitrogen [ Pending], Creatinine [Pending], Estimat Glomerular Filtration Rate [Pending], Glucose Level [Pending], Calcium Level [Pending], Total Bilirubin [Pending], Aspartate Amino Transf (AST/SGOT) [Pending], Alanine Aminotransferase (ALT/SGPT ) [Pending], Alkaline Phosphatase [Pending], Total Protein [Pending], Albumin [ Pending], Globulin [Pending] Current Medications Medications (Trade) Dose Ordered Sig/Fish Route PRN Reason Start Time Stop Time Status Last Admin Dose Admin Acetaminophen (Tylenol) 650 mg Q4H PRN ORAL Mild Pain (Pain Scale 1-3) 12/29/16 00:30 01/28/17 00:29 Amlodipine Besylate (Norvasc) 10 mg DAILY ORAL 12/29/16 09:00 01/28/17 08:59 12/31/16 08:32 Aspirin (Ecotrin) 81 mg DAILY ORAL 12/29/16 09:00 01/28/17 08:59 12/31/16 08:32 Carvedilol (Coreg) 25 mg Q12HR ORAL 12/29/16 09:00 01/28/17 08:59 12/31/16 21:09 Clonidine HCl (Catapres) 0.2 mg Q4H PRN ORAL SBP> 160 12/29/16 00:30 01/28/17 00:29 Clopidogrel Bisulfate (Plavix) 75 mg DAILY ORAL 12/29/16 09:00 01/28/17 08:59 12/31/16 08:32 Dextrose (Dextrose 50%) STAT PRN IV Hypoglycemia 12/29/16 12:45 01/28/17 12:44 Diphenhydramine HCl (Benadryl) 25 mg Q6H PRN ORAL Itching/Pruritis 12/29/16 00:30 01/28/17 00:29 Epoetin Armand (Procrit (for ESRD on dialysis)) 10,000 units WED-WED-WED SUBQ 12/30/16 21:00 01/29/17 20:59 12/30/16 21:04 Furosemide (Lasix) 80 mg TWICE A DAY ORAL 12/29/16 09:00 01/28/17 08:59 12/31/16 18:07 Gabapentin (Neurontin) 300 mg EVERY 8 HOURS ORAL 12/29/16 06:00 01/28/17 05:59 01/01/17 06:04 Heparin Sodium (Porcine) (Heparin 5000 units/ml) 5,000 units EVERY 12 HOURS SUBQ 12/29/16 09:00 01/28/17 08:59 12/31/16 21:11 Hydralazine HCl (Apresoline) 100 mg Q8HR ORAL 12/29/16 06:00 01/28/17 05:59 12/31/16 13:20 Insulin Aspart (NovoLOG) BEFORE MEALS AND HS SUBQ 12/29/16 06:30 01/28/17 06:29 12/31/16 21:13 Insulin Detemir (Levemir) 8 units BEDTIME SUBQ 12/29/16 21:00 01/28/17 20:59 12/31/16 21:12 Lorazepam (Ativan) 1 mg Q4H PRN ORAL For Anxiety 12/29/16 00:30 01/05/17 00:29 Minoxidil (Loniten) 2.5 mg Q12HR ORAL 12/29/16 09:00 01/28/17 08:59 12/31/16 21:09 Ondansetron HCl (Zofran) 4 mg EVERY 4 HOURS PRN IVP Nausea & Vomiting 12/29/16 01:00 01/28/17 00:59 Pantoprazole (Protonix) 40 mg DAILY ORAL 12/29/16 09:00 01/28/17 08:59 12/31/16 08:32 Dakota NarayananBath Va Medical CenterNeelima Moon NP Jan 01, 2017 07:28
[2017-01-01 07:37] LABS: POTASSIUM 6.8 mEQ/L (3.4-4.9)
[2017-01-01 08:00] VITALS: BP 131/56
[2017-01-01] MEDS: Furosemide 80mg tab ORAL SCH (08:58)
[2017-01-01] MEDS: Aspirin EC 81mg tab ORAL SCH (08:58)
[2017-01-01] MEDS: Carvedilol 25mg Tab ORAL SCH (08:59)
[2017-01-01] MEDS: Minoxidil 2.5mg tab ORAL SCH (08:59)
[2017-01-01] MEDS: Heparin 5000 units/ml inj SUBQ SCH (09:00)
[2017-01-01 12:00] VITALS: BP 116/54
[2017-01-01] MEDS ORDERED: LANTUS SOL100 UNIT/1 SUBQ (15:33)
--- NOTE | 2017-01-01 15:34 | Nephrology Progress Note ---
Assessment/Plan Assessment 1. Fluid overload. 2. End-stage renal disease. 3. Anemia of chronic kidney disease. 4. Hyperkalemia. 5. Uncontrolled diabetes. Plan plan dialysis today low k diet dietary consult hold all bp meds monitoring electrolyte cotinue epogen check phos Subjective Constitutional: Reports: no symptoms HEENT: Reports: no symptoms Genitourinary: Reports: no symptoms Neurologic/Psychiatric: Reports: no symptoms Subjective on hemodialysis found to have k 6 feeling ok Objective Objective Last 24 Hour Vital Signs Date Time Temp Pulse Resp B/P Pulse Ox O2 Delivery O2 Flow Rate FiO2 01/01/17 14:00 116/54 01/01/17 13:15 Room Air 01/01/17 12:00 98.1 55 19 116/54 96 Room Air 01/01/17 10:10 Room Air 01/01/17 08:59 131/56 01/01/17 08:59 57 131/56 01/01/17 08:58 57 131/56 01/01/17 08:00 98.1 57 19 131/56 95 Room Air 01/01/17 05:46 131/61 01/01/17 04:37 98.2 60 20 131/61 97 Room Air 12/31/16 23:49 99.7 64 19 113/55 97 Room Air 12/31/16 22:00 113/53 12/31/16 21:09 144/70 12/31/16 21:09 60 144/70 12/31/16 19:36 97.3 60 18 144/70 96 Room Air 12/31/16 16:01 97.5 59 18 147/80 98 Room Air Intake and Output 12/31/16 01/01/17 19:00 07:00 # Voids 3 Laboratory Tests 01/01/17 05:30: White Blood Count 7.2, Red Blood Count 2.75L, Hemoglobin 9.3L, Hematocrit 27.8L , Mean Corpuscular Volume 101H, Mean Corpuscular Hemoglobin 33.7H, Mean Corpuscular Hemoglobin Concent 33.4, Red Cell Distribution Width 12.9, Platelet Count 146L, Mean Platelet Volume 8.3, Neutrophils (%) (Auto) 60.3, Lymphocytes ( %) (Auto) 23.7, Monocytes (%) (Auto) 12.2H, Eosinophils (%) (Auto) 2.8, Basophils (%) (Auto) 1.0, Sodium Level 139, Potassium Level 6.8*H, Chloride Level 92L, Carbon Dioxide Level 29, Anion Gap 18H, Blood Urea Nitrogen 78H, Creatinine 9.4H, Estimat Glomerular Filtration Rate 6.0, Glucose Level 104, Calcium Level 9.2, Total Bilirubin 0.4, Aspartate Amino Transf (AST/SGOT) 12, Alanine Aminotransferase (ALT/SGPT) 8, Alkaline Phosphatase 92, Total Protein 6.7, Albumin 3.4L, Globulin 3.3, Albumin/Globulin Ratio 1.0 Height (Feet): 5 Height (Inches): 7.00 Weight (Pounds): 165 Objective HEAD AND NECK: No JVP. No LAD. No thyromegaly. Extraocular movement intact. Pupils reactive to light and accommodation. LUNGS: Bilateral decreased breathing sound on the both side otherwise clear. CARDIAC: Regular rate and rhythm. S1 and S2. No murmur. No rub. ABDOMEN: Soft, nontender, and nondistended. EXTREMITIES: Trace edema. No clubbing. No cyanosis. [facility] Jan 01, 2017 15:34
[2017-01-01 16:00] VITALS: BP 169/70
--- NOTE | 2017-01-01 17:03 | Internal Med Progress Note ---
Subjective Date of Service: Jan 01, 2017 Physician Name Edwina Lawson Attending Physician Jimbo Acosta MD Current Medications Medications (Trade) Dose Ordered Sig/Fish Route PRN Reason Start Time Stop Time Status Last Admin Dose Admin Acetaminophen (Tylenol) 650 mg Q4H PRN ORAL Mild Pain (Pain Scale 1-3) 12/29/16 00:30 01/28/17 00:29 Amlodipine Besylate (Norvasc) 10 mg DAILY ORAL 12/29/16 09:00 01/28/17 08:59 01/01/17 08:58 Aspirin (Ecotrin) 81 mg DAILY ORAL 12/29/16 09:00 01/28/17 08:59 01/01/17 08:58 Carvedilol (Coreg) 25 mg Q12HR ORAL 12/29/16 09:00 01/28/17 08:59 12/31/16 21:09 Clonidine HCl (Catapres) 0.2 mg Q4H PRN ORAL SBP> 160 12/29/16 00:30 01/28/17 00:29 Clopidogrel Bisulfate (Plavix) 75 mg DAILY ORAL 12/29/16 09:00 01/28/17 08:59 01/01/17 09:04 Dextrose (Dextrose 50%) STAT PRN IV Hypoglycemia 12/29/16 12:45 01/28/17 12:44 Diphenhydramine HCl (Benadryl) 25 mg Q6H PRN ORAL Itching/Pruritis 12/29/16 00:30 01/28/17 00:29 Epoetin Armand (Procrit (for ESRD on dialysis)) 10,000 units WED-WED-WED SUBQ 12/30/16 21:00 01/29/17 20:59 12/30/16 21:04 Furosemide (Lasix) 80 mg TWICE A DAY ORAL 12/29/16 09:00 01/28/17 08:59 01/01/17 08:58 Gabapentin (Neurontin) 300 mg EVERY 8 HOURS ORAL 12/29/16 06:00 01/28/17 05:59 01/01/17 14:20 Heparin Sodium (Porcine) (Heparin 5000 units/ml) 5,000 units EVERY 12 HOURS SUBQ 12/29/16 09:00 01/28/17 08:59 12/31/16 21:11 Hydralazine HCl (Apresoline) 100 mg Q8HR ORAL 12/29/16 06:00 01/28/17 05:59 12/31/16 13:20 Insulin Aspart (NovoLOG) BEFORE MEALS AND HS SUBQ 12/29/16 06:30 01/28/17 06:29 01/01/17 16:40 Insulin Detemir (Levemir) 8 units BEDTIME SUBQ 12/29/16 21:00 01/28/17 20:59 12/31/16 21:12 Lorazepam (Ativan) 1 mg Q4H PRN ORAL For Anxiety 12/29/16 00:30 01/05/17 00:29 Minoxidil (Loniten) 2.5 mg Q12HR ORAL 12/29/16 09:00 01/28/17 08:59 12/31/16 21:09 Ondansetron HCl (Zofran) 4 mg EVERY 4 HOURS PRN IVP Nausea & Vomiting 12/29/16 01:00 01/28/17 00:59 Pantoprazole (Protonix) 40 mg DAILY ORAL 12/29/16 09:00 01/28/17 08:59 01/01/17 08:58 Allergies: Coded Allergies: No Known Allergies (Unverified , 09/26/14) ROS Limited/Unobtainable: No Constitutional: Reports: no symptoms HEENT: Reports: no symptoms Cardiovascular: Reports: no symptoms Respiratory: Reports: no symptoms Gastrointestinal/Abdominal: Reports: no symptoms Genitourinary: Reports: no symptoms Neurologic/Psychiatric: Reports: no symptoms Subjective 46 YO M admitted with nausea, vomiting, diarrhea and epigastric pain. Now enteritis. Cover for Int Med-Dr Acosta.. Denies nausea, vomiting or diarrhea. Epigastric pain improved. Objective Last Vital Signs Date Time Temp Pulse Resp B/P Pulse Ox O2 Delivery O2 Flow Rate FiO2 01/01/17 16:00 97.5 63 18 169/70 96 Room Air 12/30/16 04:43 3.0 Laboratory Tests Test 01/01/17 05:30 White Blood Count 7.2 K/UL (4.8-10.8) Red Blood Count 2.75 M/UL (4.70-6.10) L Hemoglobin 9.3 G/DL (14.2-18.0) L Hematocrit 27.8 % (42.0-52.0) L Mean Corpuscular Volume 101 FL (80-99) H Mean Corpuscular Hemoglobin 33.7 PG (27.0-31.0) H Mean Corpuscular Hemoglobin Concent 33.4 G/DL (32.0-36.0) Red Cell Distribution Width 12.9 % (11.6-14.8) Platelet Count 146 K/UL (150-450) L Mean Platelet Volume 8.3 FL (6.5-10.1) Neutrophils (%) (Auto) 60.3 % (45.0-75.0) Lymphocytes (%) (Auto) 23.7 % (20.0-45.0) Monocytes (%) (Auto) 12.2 % (1.0-10.0) H Eosinophils (%) (Auto) 2.8 % (0.0-3.0) Basophils (%) (Auto) 1.0 % (0.0-2.0) Sodium Level 139 mEQ/L (135-145) Potassium Level 6.8 mEQ/L (3.4-4.9) *H Chloride Level 92 mEQ/L (98-107) L Carbon Dioxide Level 29 mEQ/L (20-30) Anion Gap 18 (5-15) H Blood Urea Nitrogen 78 mg/dL (7-23) H Creatinine 9.4 mg/dL (0.7-1.2) H Estimat Glomerular Filtration Rate 6.0 mL/min (>60) Glucose Level 104 mg/dL (74-106) Calcium Level 9.2 mg/dL (8.6-10.2) Total Bilirubin 0.4 mg/dL (0.0-1.2) Aspartate Amino Transf (AST/SGOT) 12 U/L (5-40) Alanine Aminotransferase (ALT/SGPT) 8 U/L (3-41) Alkaline Phosphatase 92 U/L (40-129) Total Protein 6.7 g/dL (6.6-8.7) Albumin 3.4 g/dL (3.5-5.2) L Globulin 3.3 g/dL Albumin/Globulin Ratio 1.0 (1.0-2.7) Intake and Output 12/31/16 01/01/17 19:00 07:00 # Voids 3 Objective General Appearance: WD/WN, no apparent distress, alert EENT: PERRL/EOMI, normal ENT inspection Neck: non-tender, normal alignment, supple Cardiovascular: normal peripheral pulses, normal rate, regular rhythm, no gallop/murmur, no JVD Respiratory/Chest: chest wall non-tender, lungs clear, normal breath sounds, no respiratory distress, no accessory muscle use Abdomen: normal bowel sounds, non tender, soft, no organomegaly, no mass Extremities: normal range of motion Neurologic: consulting services manager II-XII grossly normal, no motor/sensory deficits Skin: normal pigmentation Assessment/Plan Problem List: (1) Epigastric pain Assessment & Plan: See GI workup in progress (2) Diabetes mellitus type II, controlled (3) HTN (hypertension) (4) ESRD (end stage renal disease) on dialysis Assessment & Plan: S/P hemodialysis 01/01/17-See nephrology note. (5) Congestive heart failure (CHF) (6) Nausea, vomiting, and diarrhea Assessment & Plan: Resolving; see GI note. (7) Enteritis Assessment & Plan: Will not require colonoscopy and endoscopy-see GI note. (8) CHF (congestive heart failure) Assessment & Plan: See cardiology note. Status: stable Assessment/Plan D/C toeay 01/01/17 after dialysis. F/U with PCP EDWINA Caba MD Jan 01, 2017 17:03
--- NOTE | 2017-01-01 22:54 | General Progress Note ---
Assessment/Plan Assessment/Plan Assessment - N/V, transient and resolved - ? gastroenteritis - ESRD -- PD Recommendations - push po - OOB - follow symptoms - dc planning Subjective Allergies: Coded Allergies: No Known Allergies (Unverified , 09/26/14) Subjective Feels better no vomiting or abdominal pain tolerating po for discharge today Objective Last 24 Hour Vital Signs Date Time Temp Pulse Resp B/P Pulse Ox O2 Delivery O2 Flow Rate FiO2 01/01/17 16:00 97.5 63 18 169/70 96 Room Air 01/01/17 14:00 116/54 01/01/17 13:15 Room Air 01/01/17 12:00 98.1 55 19 116/54 96 Room Air 01/01/17 10:10 Room Air 01/01/17 08:59 131/56 01/01/17 08:59 57 131/56 01/01/17 08:58 57 131/56 01/01/17 08:00 98.1 57 19 131/56 95 Room Air 01/01/17 05:46 131/61 01/01/17 04:37 98.2 60 20 131/61 97 Room Air 12/31/16 23:49 99.7 64 19 113/55 97 Room Air Intake and Output 12/31/16 01/01/17 19:00 07:00 # Voids 3 Laboratory Tests 01/01/17 05:30: White Blood Count 7.2, Red Blood Count 2.75L, Hemoglobin 9.3L, Hematocrit 27.8L , Mean Corpuscular Volume 101H, Mean Corpuscular Hemoglobin 33.7H, Mean Corpuscular Hemoglobin Concent 33.4, Red Cell Distribution Width 12.9, Platelet Count 146L, Mean Platelet Volume 8.3, Neutrophils (%) (Auto) 60.3, Lymphocytes ( %) (Auto) 23.7, Monocytes (%) (Auto) 12.2H, Eosinophils (%) (Auto) 2.8, Basophils (%) (Auto) 1.0, Sodium Level 139, Potassium Level 6.8*H, Chloride Level 92L, Carbon Dioxide Level 29, Anion Gap 18H, Blood Urea Nitrogen 78H, Creatinine 9.4H, Estimat Glomerular Filtration Rate 6.0, Glucose Level 104, Calcium Level 9.2, Total Bilirubin 0.4, Aspartate Amino Transf (AST/SGOT) 12, Alanine Aminotransferase (ALT/SGPT) 8, Alkaline Phosphatase 92, Total Protein 6.7, Albumin 3.4L, Globulin 3.3, Albumin/Globulin Ratio 1.0 Height (Feet): 5 Height (Inches): 7.00 Weight (Pounds): 165 Objective Thin man NCAT supple CTA RRR Soft NT no edema non focal CELSO LINCOLN Jan 01, 2017 22:54
--- NOTE | 2017-01-04 10:05 | Discharge Summary ---
Discharge Summary Hospital Course Date of Admission Dec 28, 2016 at 07:58 Date of Discharge Jan 01, 2017 at 18:10 Admitting Diagnosis pulm edema/abd pain/ESRD HPI Holland Dseir is a 46 year old male who was admitted on Dec 28, 2016 at 07: 58 for Pulmonary Edema/Abdominal Pain/End Stage Renal Hospital Course dc summary #[id number] Discharge Medications Continued Medications: Amlodipine Besylate (Norvasc) 10 Mg Tab 10 MG ORAL DAILY, #1 TAB Aspirin* (Aspir 81*) 81 Mg Tablet.dr 81 MG ORAL DAILY, TAB Carvedilol (Coreg) 6.25 Mg Tab 6.25 MG ORAL EVERY 12 HOURS, #1 TAB Clonidine HCl (Clonidine HCl) 0.1 Mg Tab 0.2 MG ORAL Q4H PRN for SBP> 160, #1 TAB Clopidogrel Bisulfate* (Plavix*) 75 Mg Tablet 75 MG ORAL DAILY, TAB Furosemide* (Lasix*) 80 Mg Tablet 80 MG ORAL TWICE A DAY, TAB Gabapentin* (Gabapentin*) 300 Mg Capsule 300 MG ORAL EVERY 8 HOURS, CAP 0 Refills Hydralazine Hcl* (Hydralazine Hcl*) 100 Mg Tablet 100 MG ORAL THREE TIMES A DAY, TAB Insulin Glargine (Lantus) 100 Unit/1 Ml Insuln.pen 8 SUBQ BEDTIME, #1 EA 0 Refills Insulin Lispro (Humalog) 100 Unit/1 Ml Cartridge 0 SUBQ, #1 UNITS 0 Refills Minoxidil* (Loniten*) 2.5 Mg Tablet 2.5 MG PO BID, TAB Pantoprazole* (Protonix*) 40 Mg Tablet.dr 40 MG ORAL DAILY, #1 TAB Discharge Condition Upon Discharge: stable Discharge Disposition Patient was discharged to Home () Discharge Diagnoses: Dakota (Tatum)Neelima NP Jan 04, 2017 10:05
--- NOTE | 2017-01-04 11:16 | Discharge Summary 2 SIG ---
DATE OF ADMISSION: 12/28/2016 DATE OF DISCHARGE: 01/01/2017 REASON FOR ADMISSION: 46-year-old male with history of hypertension, diabetes, end-stage renal disease, on hemodialysis, presented to the emergency room due to abdominal pain for two days, nausea, and vomiting. Workup in the emergency room revealed uncontrolled blood pressure 231/102 , pulse oximetry was 90% on the room air. CT of the abdomen and pelvis revealed possible enteritis. Potassium - 5.5. The patient was admitted for further management. ADMITTING DIAGNOSES: 1. Abdominal pain with nausea and vomiting. 2. Hypertensive urgency. 3. Fluid overload. 4. Hyperkalemia. 5. End-stage renal disease. 6. Likely gastroenteritis. 7. Diabetes HOSPITAL STAY: The patient was admitted. Nephrology consult was requested for hemodialysis. Renal parameters and electrolytes were closely monitored. Hyperkalemia was treated. Cardiology consult was requested due to initial hypertensive urgency. The patient started on multiple regimen of antihypertensive including beta-elaine, calcium channel elaine, minoxidil, hydralazine, and Lasix. Chest x-ray revealed cardiomegaly and findings consistent with congestive heart failure. CT of the abdomen and pelvis demonstrated patchy ground-glass opacity in the right lung base, small right trace left pleural effusion, likely reflecting congestive heart failure. Echocardiogram revealed ejection fraction of 55%, severe left ventricular hypertrophy, mild pulmonary hypertension, and evidence of diastolic dysfunction. Blood sugar was managed with Levemir and sliding scale of insulin. Hemoglobin A1c at goal -6.9. The patient was working with physical and occupational therapists. DVT and GI prophylaxis provided. GI followed. Per GI, GI symptoms resolved and were likely due to the episode of gastroenteritis. The patient was able to tolerate diet. CEA was within normal limits. GI recommended to treat symptomatically and cleared for discharge. Hemoglobin and hematocrit were stable, at baseline. The patient with anemia of chronic renal disease. The patient was stable for discharge home and follow up as outpatient with the hemodialysis. FINAL DIAGNOSIS: 1. 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 Episode of gastroenteritis, resolved 3. Abdominal pain with nausea and vomiting likely due to gastroenteritis, resolved 4. Hypertensive urgency-resolved 5. ESRD, on HD 6. Hyperkalemia-resolved 7. Anemia of chronic renal disease 8. Diabetes DISCHARGE MEDICATIONS: see medication reconciliation list DISCHARGE INSTRUCTIONS: Patient was discharged to home. Follow up with outpatient hemodialysis. Follow up with primary medical doctor. Jimbo Acosta M.D. Neelima PedroJose harvey DR: TAIWO JOB#: [id number] CC: [id number]
== END 2017-01-01 18:10 | disposition home or self-care (01) | DRG 291 ==
LOC: EMR 06:10 → 2E 07:58 → EDBEDREQ 08:33 → 4W 22:02
PROC: 5A1D60Z (ICD-10-PCS; principal; 2016-12-28)
DX: I13.2 Hypertensive heart and chronic kidney disease with heart failure and with stage 5 chronic kidney disease, or end stage renal disease (principal); N18.6 End stage renal disease; E11.22 Type 2 diabetes mellitus with diabetic chronic kidney disease; K31.84 Gastroparesis; E11.43 Type 2 diabetes mellitus with diabetic autonomic (poly)neuropathy; E87.5 Hyperkalemia; I50.33 Acute on chronic diastolic (congestive) heart failure; Z99.2 Dependence on renal dialysis; E11.65 Type 2 diabetes mellitus with hyperglycemia; K52.9 Noninfective gastroenteritis and colitis, unspecified; D63.1 Anemia in chronic kidney disease; N25.0 Renal osteodystrophy; E78.5 Hyperlipidemia, unspecified; E87.70 Fluid overload, unspecified
CPT/HCPCS: 36415; 71010; 74176; 80048; 80053; 82270; 82378; 82962; 83036; 83540; 83550; 83690; 83735; 83880; 84100; 84439; 84443; 84484; 85025; 85610; 85730; 87081; 93005; 93306; J1815; J2405; S5561